=== PATIENT | female | born 1950 | race Caucasian/White ===

== ENCOUNTER → 2017-11-12 11:06 | Outpatient (CLI) | payer MEDICARE, OTHER, SELFPAY ==
--- NOTE | 2017-11-12 | DI.MG.S_ITS ---
BILATERAL DIGITAL SCREENING MAMMOGRAM 3D/2D WITH CAD: 11/12/2017 CLINICAL: Routine screening. Family history of breast cancer. Comparison is made to exams dated: 10/05/2016 mammogram, 10/04/2015 mammogram, and 12/22/2012 mammogram - [facility]. There are scattered fibroglandular elements in both breasts. Current study was also evaluated with a Computer Aided Detection (CAD) system. No significant masses, calcifications, or other findings are seen in either breast. There has been no significant interval change. IMPRESSION: NEGATIVE There is no mammographic evidence of malignancy. A 1 year screening mammogram is recommended. This exam was interpreted at Station ID: [id number]. NOTE: For mammograms, a report in lay terms will be sent to the patient. Approximately 15% of breast malignancies will not be visualized mammographically. In the management of a palpable breast mass, a negative mammogram must not discourage biopsy of a clinically suspicious lesion. Electronically Signed By: Bree valentin/neetu:11/12/2017 15:27:55 letter sent: Normal Exam ACR BI-RADS Category 1: Negative 3341F
== END ==
PROVIDERS: Family Provider Family Medicine; PCP Family Medicine; Visit Provider Family Medicine
DX: Z12.31 Encounter for screening mammogram for malignant neoplasm of breast (principal); Z80.3 Family history of malignant neoplasm of breast
CPT/HCPCS: 77063; 77067

== ENCOUNTER → 2018-01-26 15:05 | Outpatient (CLI) | payer MEDICARE, OTHER, SELFPAY | PROVIDERS: Family Provider Family Medicine; PCP Family Medicine; Visit Provider Family Medicine | DX: M81.0 Age-related osteoporosis without current pathological fracture (principal) | CPT/HCPCS: 77080 ==

== ENCOUNTER → 2018-11-15 11:33 | Outpatient (CLI) | payer MEDICARE, OTHER, SELFPAY ==
--- NOTE | 2018-11-15 | DI.MG.S_ITS ---
BILATERAL DIGITAL SCREENING MAMMOGRAM 3D/2D WITH CAD: 11/15/2018 CLINICAL: Routine screening. Family history of breast cancer. Comparison is made to exams dated: 11/12/2017 mammogram, 10/05/2016 mammogram, and 10/04/2015 mammogram - [facility]. There are scattered fibroglandular elements in both breasts. Current study was also evaluated with a Computer Aided Detection (CAD) system. No significant masses, calcifications, or other findings are seen in either breast. There has been no significant interval change. IMPRESSION: NEGATIVE There is no mammographic evidence of malignancy. A 1 year screening mammogram is recommended. This exam was interpreted at Station ID: [id number]. NOTE: For mammograms, a report in lay terms will be sent to the patient. Approximately 15% of breast malignancies will not be visualized mammographically. In the management of a palpable breast mass, a negative mammogram must not discourage biopsy of a clinically suspicious lesion. Electronically Signed By: Kolton capellan/neetu:11/15/2018 18:40:47 letter sent: Normal Exam ACR BI-RADS Category 1: Negative 3341F
== END ==
PROVIDERS: Family Provider Family Medicine; PCP Family Medicine; Visit Provider Family Medicine
DX: Z12.31 Encounter for screening mammogram for malignant neoplasm of breast (principal); Z80.3 Family history of malignant neoplasm of breast
CPT/HCPCS: 77063; 77067

== ENCOUNTER → 2020-01-30 16:03 | Outpatient (CLI) | payer MEDICARE, OTHER, SELFPAY ==
--- NOTE | 2020-01-30 16:06 | DI.MG.S_ITS ---
BILATERAL DIGITAL SCREENING MAMMOGRAM 3D/2D WITH CAD: 01/30/2020 CLINICAL: Routine screening. Family history of breast cancer. Comparison is made to exams dated: 11/15/2018 mammogram, 11/12/2017 mammogram, and 10/05/2016 mammogram - [facility]. There are scattered fibroglandular elements in both breasts. Current study was also evaluated with a Computer Aided Detection (CAD) system. No significant masses, calcifications, or other findings are seen in either breast. There has been no significant interval change. IMPRESSION: NEGATIVE There is no mammographic evidence of malignancy. A 1 year screening mammogram is recommended. This exam was interpreted at Station ID: [id number]. NOTE: For mammograms, a report in lay terms will be sent to the patient. Approximately 15% of breast malignancies will not be visualized mammographically. In the management of a palpable breast mass, a negative mammogram must not discourage biopsy of a clinically suspicious lesion. Electronically Signed By: Arsalan major/neetu:01/30/2020 17:15:01 letter sent: Normal Exam ACR BI-RADS Category 1: Negative 3341F
== END ==
PROVIDERS: Family Provider Family Medicine; PCP Family Medicine; Referring Provider Family Medicine; Visit Provider Family Medicine
DX: Z12.31 Encounter for screening mammogram for malignant neoplasm of breast (principal); Z80.3 Family history of malignant neoplasm of breast
CPT/HCPCS: 77063; 77067

== ENCOUNTER → 2021-03-03 15:48 | Outpatient (CLI) | payer MEDICARE, OTHER, SELFPAY ==
--- NOTE | 2021-03-03 | DI.MG.S_ITS ---
BILATERAL DIGITAL SCREENING MAMMOGRAM 3D/2D WITH CAD: 03/03/2021 CLINICAL: Routine screening. Family history of breast cancer. Comparison is made to exams dated: 01/30/2020 mammogram, 11/15/2018 mammogram, and 11/12/2017 mammogram - [facility]. There are scattered fibroglandular elements in both breasts. Current study was also evaluated with a Computer Aided Detection (CAD) system. No significant masses, calcifications, or other findings are seen in either breast. There has been no significant interval change. IMPRESSION: NEGATIVE There is no mammographic evidence of malignancy. A 1 year screening mammogram is recommended. This exam was interpreted at Station ID: [id number]. NOTE: For mammograms, a report in lay terms will be sent to the patient. Approximately 15% of breast malignancies will not be visualized mammographically. In the management of a palpable breast mass, a negative mammogram must not discourage biopsy of a clinically suspicious lesion. Electronically Signed By: Jerman Page M.D., jr/neetu:03/04/2021 08:28:07 letter sent: Normal Exam ACR BI-RADS Category 1: Negative 3341F
== END ==
PROVIDERS: Family Provider Family Medicine; PCP Family Medicine; Referring Provider Family Medicine; Visit Provider Family Medicine
DX: Z12.31 Encounter for screening mammogram for malignant neoplasm of breast (principal); Z80.3 Family history of malignant neoplasm of breast
CPT/HCPCS: 77063; 77067

== ENCOUNTER 2021-08-28 16:00 | Outpatient (RCR) | payer MEDICARE, OTHER, SELFPAY ==
--- NOTE | 2021-04-03 17:09 | PT.OIE ---
Current Diagnoses Unspecified urinary incontinence (04/03/21) Past Medical History (Last Updated 07/19/20 @ 17:33 by Hallie Lozoya DO) Cardiomyopathy Excessive daytime sleepiness Hyperlipidemia Hypertension Hypothyroidism Impaired fasting glucose Obesity (BMI 30-39.9) Obstructive sleep apnea of adult Primary insomnia Urinary incontinence in female Past Surgical History (Last Reviewed 05/15/20 @ 00:42 by ELVIS Rosenberg) Status post surgery (06/18/08) Status post surgery (08/07/13) Visit Care Team Role Provider Type Keerthi De Luna MD Attending Provider Physician Family Provider Primary Care Provider Referring Provider Specialty: Family Practice Address: [address] [place] [address], [facility] Email: Physical Therapy Initial Evaluation PT-OP-A Visit Information Start: 02/11/21 15:40 Freq: Status: Active Protocol: Document 04/03/21 13:44 [facility] (Rec: 04/03/21 14:07 [facility] [id number]) Out-Patient Physical Therapy Visit Information Visit Information Visit Type Initial Evaluation Visit Start Time 13:45 Visit Stop Time 14:30 Total Visit Minutes 45 Visit Number 1 Evaluation Information Evaluation Date 04/03/21 PT-OP-B Current Condition Start: 02/11/21 15:40 Freq: Status: Active Protocol: Document 04/03/21 13:44 [facility] (Rec: 04/03/21 14:07 [facility] [id number]) Current Condition History of Current Condition Onset Date symptoms have progressed in the past 8 years, increased sx in the last 6 mo Current Complaints urinary and fecal incontinence History of Current Condition symptoms began 8 years ago and have progressed. Elizabeth notes her symptoms seemed controllable for a while but in the last 6 months they have progressed. Her symptoms include urinary and fecal urgency. She did try a medication for urgency but not seem to help it. She has type II diabetes and tries to drink water but it makes her void more so water intake is limited. At times she can also have fecal incontinence maybe 2-3 times in the last year. If she has been sitting and then gets up she will have a sudden urge to void. Elizabeth wears a heavy pad every day and changes it 3 -4 times per day. She does leak at night as well as her pad is wet. She also has sleep apnea and has a cpap machine on at night Prior Treatments and Tests 2 D&C's long history of heavy periods and she had many polups removed that helped decrease the symptoms of heavy periods Treatment Goals Patient/Caregiver Goals Elizabeth'lulu goals include decreasing urinary and fecal incontinence as well as urgency Current Functional Impairments (Reported) Functional Limitations- ADL's urinary urgency and leaking limiting recreational and social activities PT-OP-C Subjective Start: 02/11/21 15:40 Freq: Status: Active Protocol: Document 04/03/21 13:44 [facility] (Rec: 04/08/21 17:08 [facility] [id number]) Patient Questionnaires Pelvic Pain and Urgency/Frequency Patient Symptom Scale Pelvic Pain Score 6 OP-PT Pain Assessment Location R SI joint Intensity 2 Scale Used Numeric (0 - 10) Description Aching PT-OP-I Pelvic Floor Start: 02/11/21 15:40 Freq: Status: Active Protocol: Document 04/03/21 13:44 [facility] (Rec: 04/03/21 17:22 [facility] [id number]) Pelvic Floor Assessment Urine Pelvic Floor Surgery No Urinary Symptoms Urge Sensation,Incomplete Emptying Leakage Size Medium Leakage Cause Cough,Exercise,Lifting,Sneeze, Urge Leaks Per Day 4 Voiding Frequency approx 6 xms per day Nocturia yes Pads Used In 24 Hours 3-4 Urine Pad Type Depends Pelvic Clock Pelvic Clock 12-3 Atrophy Pelvic Clock 3-6 Atrophy Pelvic Clock 6-9 Guarding Pelvic Clock 9-12 Atrophy Pelvic Clock Other left sided levator ani guarding and tightness SEMG (uV) Baseline 0 10 Second Contraction 1.3 Recruitment Pattern Fair Relaxation Good Holding Poor/Slow Stability of Hold Poor/Slow SEMG Stability of Rest Good Contraction Ability Voluntary Contraction Weak Voluntary Relaxation Weak Manual Muscle Testing Left 2 Manual Muscle Testing Right 3 Manual Muscle Testing Anterior 2 Manual Muscle Testing Posterior 3 Muscle Endurance (Seconds) 2 Comments Pelvic Floor Comments poor endurance with ability to hold only a quick flick, average contraction for long holds is 1.3 uv with a max contraction of 5.2 uv PT-OP-Q Treatments Start: 02/11/21 15:40 Freq: Status: Active Protocol: Document 04/03/21 13:44 [facility] (Rec: 04/03/21 17:20 [facility] [id number]) Therapeutic Exercises Supine Exercises supine pelvic floor activation Side bilateral Comments pt to work on holding up to 5 seconds with 10 second rest supine ball squeeze Side bilateral Reps/Minutes x 10res holding 5 seconds PT-OP-T Assessment and Plan Start: 02/11/21 15:40 Freq: Status: Active Protocol: Document 04/03/21 13:44 [facility] (Rec: 04/03/21 17:25 [facility] [id number]) Physical Therapy Assessment Rehab Potential Rehabilitation Potential Good Evaluation Complexity Number of Personal Factors/Comorbidities 0 Number of Body Systems Impaired 1-2 Clinical Presentation at Evaluation Stable Impairments Impairments Functional Activities,Pain, Soft Tissue Mobility,Strength, Tone Goals 4 Impairment Decreased strength of the pelvic floor with MMT of 2/5 for the anterior and left lateral martinez and 3/5 for the right lateral and posterior wall Sustain Engineer Goal (LTG) Elizabeth is able to increase her strength by one muscle grade for all aspects of her levator ani to improve support to the pelvic organs LTG Duration 8 weeks 3 Impairment Elizabeth reports urinary leakage with sit-stand activity Sustain Engineer Goal (LTG) Elizabeth is able to perform sit -stand without complaints of urinary leakage LTG Duration 8 weeks 2 Impairment Poor endurance of the pelvic floor muscles with Elizabeth only being able to hold a pelvic floor contraction for 1 -2 seconds Short Term Goal (STG) Elizabeth is able to sustain a pelvic floor contraction in supine x 10 second hold time and for 10 reps STG Duration 5 weeks Long-Term Goal (LTG) Elizabeth is able to sustain a pelvic floor contraction in sitting and or standing x 5 seconds LTG Duration 8 weeks 1 Impairment urinary leakage greater than 4 times per day, wetting through her clothes at times. Elizabeth is wearing depends and changing them 3-4 times per day Short Term Goal (STG) Elizabeth is educated on pelvic floor and core strengthening and she reports she is waking up dry in the morning STG Duration 5 weeks Sustain Engineer Goal (LTG) With pelvic floor and core strengthening Elizabeth is able to reduce her leaking to 0-1 times per day LTG Duration 8 weeks + Assessment Summary Assessment Elizabeth is a 71 year old female referred to Physical Therapy for pelvic floor strengthening. She has complaints of primarily urinary incontinence but has also suffered a few episodes of fecal incontinence as well. She has had symtpoms for approx 8 years but she felt they were manageable. In the past 6 months though her symptoms have progressed and she is leaking approximately 4 times per day and wearing depends type protection. She reports driving longer distances has become difficult for her and she loses control when transferring from a sitting position to a standing position. With evaluation today Elizabeth is weak in her levator ani testing 2/5 MMT for the left and anterior wall, 3/5 MMT for the posterior and right wall. She lacks endurnance and is only able to sustain a pelvic floor contraction 1-2 seconds. I initiated EMG biofeedback with her today for neuro re- education of the pelvic floor muscles and she tolerated this well. She is a good candidate for PT. Physical Therapy Plan Frequency and Duration Frequency of Treatment 1x/Week Duration of Treatment 8 Plan of Care Start Date 04/03/21 Plan of Care End Date 05/29/21 Therapeutic Interventions Therapeutic Interventions Home Exercise Program, Neuromuscular Re-education, Self-Care/Home Management,Soft Tissue Mobilization, Therapeutic Exercises Modalities Biofeedback Next Visit Focus/Plan Next Note Type Treatment Note Next Visit Plan continue with the EMG biofeedback for neuro awareness of the pelvic floor, begin abduction exercise to help facilitate pelvic floor contraction
--- NOTE | 2021-04-03 17:09 | PT.OPPOC ---
Physical, Occupational & Speech Therapy At [facility] Current Diagnoses Unspecified urinary incontinence (04/03/21) Visit Care Team Role Provider Type Keerthi De Luna MD Attending Provider Physician Family Provider Primary Care Provider Referring Provider Specialty: Family Practice Address: [address] [place] [address] [place], [address] Email: [email or web address] Plan Of Care PT-OP-T Assessment and Plan Start: 02/11/21 15:40 Freq: Status: Active Protocol: Document 04/03/21 13:44 [facility] (Rec: 04/03/21 17:25 [facility] [id number]) Physical Therapy Assessment Rehab Potential Rehabilitation Potential Good Evaluation Complexity Number of Personal Factors/Comorbidities 0 Number of Body Systems Impaired 1-2 Clinical Presentation at Evaluation Stable Impairments Impairments Functional Activities,Pain, Soft Tissue Mobility,Strength, Tone Goals 4 Impairment Decreased strength of the pelvic floor with MMT of 2/5 for the anterior and left lateral martinez and 3/5 for the right lateral and posterior wall Intermediate Goal (LTG) Elizabeth is able to increase her strength by one muscle grade for all aspects of her levator ani to improve support to the pelvic organs LTG Duration 8 weeks 3 Impairment Elizabeth reports urinary leakage with sit-stand activity Intermediate Goal (LTG) Elizabeth is able to perform sit -stand without complaints of urinary leakage LTG Duration 8 weeks 2 Impairment Poor endurance of the pelvic floor muscles with Elizabeth only being able to hold a pelvic floor contraction for 1 -2 seconds Short Term Goal (STG) Elizabeth is able to sustain a pelvic floor contraction in supine x 10 second hold time and for 10 reps STG Duration 5 weeks Intermediate Goal (LTG) Elizabeth is able to sustain a pelvic floor contraction in sitting and or standing x 5 seconds LTG Duration 8 weeks 1 Impairment urinary leakage greater than 4 times per day, wetting through her clothes at times. Elizabeth is wearing depends and changing them 3-4 times per day Short Term Goal (STG) Elizabeth is educated on pelvic floor and core strengthening and she reports she is waking up dry in the morning STG Duration 5 weeks Foxer Goal (LTG) With pelvic floor and core strengthening Elizabeth is able to reduce her leaking to 0-1 times per day LTG Duration 8 weeks + Assessment Summary Assessment Elizabeth is a 71 year old female referred to Physical Therapy for pelvic floor strengthening. She has complaints of primarily urinary incontinence but has also suffered a few episodes of fecal incontinence as well. She has had symptoms for approx 8 years but she felt they were manageable. In the past 6 months though her symptoms have progressed and she is leaking approximately 4 times per day and wearing depends type protection. She reports driving longer distances has become difficult for her and she loses control when transferring from a sitting position to a standing position. With evaluation today Elizabeth is weak in her levator ani testing 2/5 MMT for the left and anterior wall, 3/5 MMT for the posterior and right wall. She lacks endurance and is only able to sustain a pelvic floor contraction 1-2 seconds. I initiated EMG biofeedback with her today for neuro re- education of the pelvic floor muscles and she tolerated this well. She is a good candidate for PT. Physical Therapy Plan Frequency and Duration Frequency of Treatment 1x/Week Duration of Treatment 8 Plan of Care Start Date 04/03/21 Plan of Care End Date 05/29/21 Therapeutic Interventions Therapeutic Interventions Home Exercise Program, Neuromuscular Re-education, Self-Care/Home Management,Soft Tissue Mobilization, Therapeutic Exercises Modalities Biofeedback Next Visit Focus/Plan Next Note Type Treatment Note Next Visit Plan continue with the EMG biofeedback for neuro awareness of the pelvic floor, begin abduction exercise to help facilitate pelvic floor contraction Plan of Care Dates Plan of Care Start Date 04/03/21 Plan of Care End Date 05/29/21 Electronically Signed by: Jessica Finnegan, PT 04/08/21 1739 Please Sign and Return: I have reviewed this Plan of Care and certify that the skilled therapy services above are required to meet the patient?s needs. Physician Signature Date Printed Name and Credentials Clinical Instructor Signature Printed Name and Credentials
--- NOTE | 2021-05-22 17:53 | PT.OTN ---
Current Diagnoses Unspecified urinary incontinence (05/22/21) Physical Therapy Treatment Note PT-OP-A Visit Information Start: 02/11/21 15:40 Freq: Status: Active Protocol: Document 05/22/21 14:37 [facility] (Rec: 05/22/21 14:44 [facility] [id number]) Out-Patient Physical Therapy Visit Information Visit Information Visit Type Treatment Note Visit Start Time 14:35 Visit Stop Time 15:15 Total Visit Minutes 40 Visit Number 2 PT-OP-B Current Condition Start: 02/11/21 15:40 Freq: Status: Active Protocol: Document 04/03/21 13:44 [facility] (Rec: 04/03/21 14:07 [facility] [id number]) Current Condition History of Current Condition Onset Date symptoms have progressed in the past 8 years, increased sx in the last 6 mo Current Complaints urinary and fecal incontinence History of Current Condition symptoms began 8 years ago and have progressed. Elizabeth notes her symptoms seemed controllable for a while but in the last 6 months they have progressed. Her symptoms include urinary and fecal urgency. She did try a medication for urgency but not seem to help it. She has type II diabetes and tries to drink water but it makes her void more so water intake is limited. At times she can also have fecal incontinence maybe 2-3 times in the last year. If she has been sitting and then gets up she will have a sudden urge to void. Elizabeth wears a heavy pad every day and changes it 3 -4 times per day. She does leak at night as well as her pad is wet. She also has sleep apnea and has a cpap machine on at night Prior Treatments and Tests 2 D&C's long history of heavy periods and she had many polups removed that helped decrease the symptoms of heavy periods Treatment Goals Patient/Caregiver Goals Elizabeth's goals include decreasing urinary and fecal incontinence as well as urgency Current Functional Impairments (Reported) Functional Limitations- ADL's urinary urgency and leaking limiting recreational and social activities PT-OP-C Subjective Start: 02/11/21 15:40 Freq: Status: Active Protocol: Document 05/22/21 14:37 [facility] (Rec: 05/22/21 14:44 [facility] [id number]) OP-PT Subjective Patient Comments Patient Comments started the bladder diary in April, she notes she uses depends 02/11 she changes her pad 3-4xms per day and over night she wears one pad. PT feels like the kegel exercises are helping a little bit. Patient Reported Progress Improving PT-OP-I Pelvic Floor Start: 02/11/21 15:40 Freq: Status: Active Protocol: Document 04/03/21 13:44 [facility] (Rec: 04/03/21 17:22 [facility] [id number]) Pelvic Floor Assessment Urine Pelvic Floor Surgery No Urinary Symptoms Urge Sensation,Incomplete Emptying Leakage Size Medium Leakage Cause Cough,Exercise,Lifting,Sneeze, Urge Leaks Per Day 4 Voiding Frequency approx 6 xms per day Nocturia yes Pads Used In 24 Hours 3-4 Urine Pad Type Depends Pelvic Clock Pelvic Clock 12-3 Atrophy Pelvic Clock 3-6 Atrophy Pelvic Clock 6-9 Guarding Pelvic Clock 9-12 Atrophy Pelvic Clock Other left sided levator ani guarding and tightness SEMG (uV) Baseline 0 10 Second Contraction 1.3 Recruitment Pattern Fair Relaxation Good Holding Poor/Slow Stability of Hold Poor/Slow SEMG Stability of Rest Good Contraction Ability Voluntary Contraction Weak Voluntary Relaxation Weak Manual Muscle Testing Left 2 Manual Muscle Testing Right 3 Manual Muscle Testing Anterior 2 Manual Muscle Testing Posterior 3 Muscle Endurance (Seconds) 2 Comments Pelvic Floor Comments poor endurance with ability to hold only a quick flick, average contraction for long holds is 1.3 uv with a max contraction of 5.2 uv PT-OP-Q Treatments Start: 02/11/21 15:40 Freq: Status: Active Protocol: Document 05/22/21 14:30 [facility] (Rec: 05/22/21 17:53 [facility] [id number]) Therapeutic Exercises Supine Exercises quick pelvic floor contractions Reps/Minutes 10 reps x 2 second hold each supine pelvic floor activation Side bilateral Comments pt to work on holding up to 5 seconds with 10 second rest supine ball squeeze Side bilateral Reps/Minutes x 10res holding 5 seconds Comments with pelvic floor activation Sidelying Exercises clam shells Reps/Minutes 2 x 10 reps Sitting Exercises sit to stand with pelvic floor engagement Reps/Minutes x 10 with pelvic floor recruitment PT-OP-T Assessment and Plan Start: 02/11/21 15:40 Freq: Status: Active Protocol: Document 05/22/21 14:30 [facility] (Rec: 05/22/21 17:53 [facility] [id number]) Physical Therapy Assessment Assessment Summary Assessment Elizabeth hasn't been seen since april 03. She notes she lost her exersice sheet and then was busy with the holidays. Today she returns and does feel that the exercises have been helping her some. She didn't bring her electrode today to her visit so we didn't do biofeedback but worked on pelvic floor as well as hip strengthening. Time was spent today on core facilitation prior to getting up out of bed as Elizabeth tends to strain with changes of position Physical Therapy Plan Frequency and Duration Frequency of Treatment 1x/Week Duration of Treatment 8 Plan of Care Start Date 04/03/21 Plan of Care End Date 05/29/21 Therapeutic Interventions Therapeutic Interventions Home Exercise Program, Neuromuscular Re-education, Self-Care/Home Management,Soft Tissue Mobilization, Therapeutic Exercises Next Visit Focus/Plan Next Note Type Treatment Note Next Visit Plan continue with EMG biofeedback next visit, review urge deference technique and bladder retraining, review clam shells and sit-stand with pelvic floor engagement
--- NOTE | 2021-06-19 17:10 | PT.OTN ---
Current Diagnoses Unspecified urinary incontinence (06/19/21) Physical Therapy Treatment Note PT-OP-A Visit Information Start: 02/11/21 15:40 Freq: Status: Active Protocol: Document 06/19/21 15:16 [facility] (Rec: 06/19/21 15:58 [facility] [id number]) Out-Patient Physical Therapy Visit Information Visit Information Visit Type Progress Note Visit Start Time 15:15 Visit Stop Time 16:00 Total Visit Minutes 45 Visit Number 3 PT-OP-B Current Condition Start: 02/11/21 15:40 Freq: Status: Active Protocol: Document 04/03/21 13:44 [facility] (Rec: 04/03/21 14:07 [facility] [id number]) Current Condition History of Current Condition Onset Date symptoms have progressed in the past 8 years, increased sx in the last 6 mo Current Complaints urinary and fecal incontinence History of Current Condition symptoms began 8 years ago and have progressed. Elizabeth notes her symptoms seemed controllable for a while but in the last 6 months they have progressed. Her symptoms include urinary and fecal urgency. She did try a medication for urgency but not seem to help it. She has type II diabetes and tries to drink water but it makes her void more so water intake is limited. At times she can also have fecal incontinence maybe 2-3 times in the last year. If she has been sitting and then gets up she will have a sudden urge to void. Elizabeth wears a heavy pad every day and changes it 3 -4 times per day. She does leak at night as well as her pad is wet. She also has sleep apnea and has a cpap machine on at night Prior Treatments and Tests 2 D&C's long history of heavy periods and she had many polups removed that helped decrease the symptoms of heavy periods Treatment Goals Patient/Caregiver Goals Elizabeth's goals include decreasing urinary and fecal incontinence as well as urgency Current Functional Impairments (Reported) Functional Limitations- ADL's urinary urgency and leaking limiting recreational and social activities PT-OP-C Subjective Start: 02/11/21 15:40 Freq: Status: Active Protocol: Document 06/19/21 15:16 [facility] (Rec: 06/19/21 15:58 [facility] [id number]) OP-PT Subjective Patient Comments Patient Comments pt reports she has been loosing sleep lately, she is trying to do her exercises but knows she isn't doing them as regularly as she needs to. Elizabeth reports she may be a little better and isn't wetting through her clothes. The am is the most challenging for her to get out of bed and make it to the bathroom Patient Reported Progress Improving PT-OP-I Pelvic Floor Start: 02/11/21 15:40 Freq: Status: Active Protocol: Document 04/03/21 13:44 [facility] (Rec: 04/03/21 17:22 [facility] [id number]) Pelvic Floor Assessment Urine Pelvic Floor Surgery No Urinary Symptoms Urge Sensation,Incomplete Emptying Leakage Size Medium Leakage Cause Cough,Exercise,Lifting,Sneeze, Urge Leaks Per Day 4 Voiding Frequency approx 6 xms per day Nocturia yes Pads Used In 24 Hours 3-4 Urine Pad Type Depends Pelvic Clock Pelvic Clock 12-3 Atrophy Pelvic Clock 3-6 Atrophy Pelvic Clock 6-9 Guarding Pelvic Clock 9-12 Atrophy Pelvic Clock Other left sided levator ani guarding and tightness SEMG (uV) Baseline 0 10 Second Contraction 1.3 Recruitment Pattern Fair Relaxation Good Holding Poor/Slow Stability of Hold Poor/Slow SEMG Stability of Rest Good Contraction Ability Voluntary Contraction Weak Voluntary Relaxation Weak Manual Muscle Testing Left 2 Manual Muscle Testing Right 3 Manual Muscle Testing Anterior 2 Manual Muscle Testing Posterior 3 Muscle Endurance (Seconds) 2 Comments Pelvic Floor Comments poor endurance with ability to hold only a quick flick, average contraction for long holds is 1.3 uv with a max contraction of 5.2 uv PT-OP-Q Treatments Start: 02/11/21 15:40 Freq: Status: Active Protocol: Document 06/19/21 15:16 [facility] (Rec: 06/19/21 15:58 [facility] [id number]) Therapeutic Exercises Supine Exercises bridges Supine Exercise Name with ball Reps/Minutes x 10 reps quick pelvic floor contractions Reps/Minutes 10 reps x 2 second hold each supine pelvic floor activation Side bilateral Comments pt to work on holding 10 seconds with 10 second rest supine ball squeeze Side bilateral Reps/Minutes x 10res holding 5 seconds Comments average contraction2.5 uv with max 7.0 Sidelying Exercises clam shells Reps/Minutes 2 x 10 reps Sitting Exercises sit to stand with pelvic floor engagement Reps/Minutes x 10 with pelvic floor recruitment PT-OP-T Assessment and Plan Start: 02/11/21 15:40 Freq: Status: Active Protocol: Document 06/19/21 15:16 [facility] (Rec: 06/19/21 15:58 [facility] [id number]) Physical Therapy Assessment Goals 4 Impairment Decreased strength of the pelvic floor with MMT of 2/5 for the anterior and left lateral martinez and 3/5 for the right lateral and posterior wall Parlor Chaperone Goal (LTG) Elizabeth is able to increase her strength by one muscle grade for all aspects of her levator ani to improve support to the pelvic organs GOOD PROGRESS LTG Duration 8 weeks 3 Impairment Elizabeth reports urinary leakage with sit-stand activity Parlor Chaperone Goal (LTG) Elizabeth is able to perform sit -stand without complaints of urinary leakage excellent progress with most of the time Elizabeth is not noticing leaking with this activity and she is able to engage her pelvic floor prior to standing LTG Duration 8 weeks 2 Impairment Poor endurance of the pelvic floor muscles with Elizabeth only being able to hold a pelvic floor contraction for 1 -2 seconds Short Term Goal (STG) Elizabeth is able to sustain a pelvic floor contraction in supine x 10 second hold time and for 10 reps Endurance is slowly improving and Elizabeth is able to hold her contraction 6-8 seconds now in supine STG Duration 5 weeks Parlor Chaperone Goal (LTG) Elizabeth is able to sustain a pelvic floor contraction in sitting and or standing x 5 seconds Some progress LTG Duration 8 weeks 1 Impairment urinary leakage greater than 4 times per day, wetting through her clothes at times. Elizabeth is wearing depends and changing them 3-4 times per day Short Term Goal (STG) Elizabeth is educated on pelvic floor and core strengthening and she reports she is waking up dry in the morning good progress and Elizabeth is no longer wetting through her clothes. Overall improvement with not wetting through her clothes, AM is the most challanging time for her to get out of bed and make it to the bathroom. STG Duration 5 weeks Parlor Chaperone Goal (LTG) With pelvic floor and core strengthening Elizabeth is able to reduce her leaking to 0-1 times per day Good progress LTG Duration 8 weeks + Progress Towards Goals Progress Towards Goals Progressing Toward Goals Assessment Summary Assessment Elizabeth has only been seen x 3 visits in PT as she needed to cancel due to family reasons. She is making progress with the visits she has had and is able to isolate her pelvic floor better now. She notes she isn't having the leaking through her clothes throughout the day now but that mornings are still difficult for her to make it to the bathroom once she wakes up. Elizabeth is showing improvements with her pelvic floor endurance but I feel she could use more visits to continue working on strength. Physical Therapy Plan Frequency and Duration Frequency of Treatment 1x/Week Duration of Treatment 8 Plan of Care Start Date 06/19/21 Plan of Care End Date 09/10/21 Therapeutic Interventions Therapeutic Interventions Home Exercise Program, Neuromuscular Re-education, Self-Care/Home Management,Soft Tissue Mobilization, Therapeutic Exercises Next Visit Focus/Plan Next Note Type Treatment Note Next Visit Plan continue with EMG biofeedback next visit, review urge deference technique and bladder retraining, review clam shells and sit-stand with pelvic floor engagement
--- NOTE | 2021-06-19 17:11 | PT.OPPOC ---
Physical, Occupational & Speech Therapy At [facility] Current Diagnoses Unspecified urinary incontinence (06/19/21) Visit Care Team Role Provider Type Keerthi De Luna MD Attending Provider Physician Family Provider Primary Care Provider Referring Provider Specialty: Family Practice Address: [address] [place] [address] [place], [address] Email: [email or web address] Plan Of Care PT-OP-T Assessment and Plan Start: 02/11/21 15:40 Freq: Status: Active Protocol: Document 06/19/21 15:16 [facility] (Rec: 06/19/21 15:58 [facility] [id number]) Physical Therapy Assessment Goals 4 Impairment Decreased strength of the pelvic floor with MMT of 2/5 for the anterior and left lateral martinez and 3/5 for the right lateral and posterior wall Specialty Transformer Assembler Goal (LTG) Elizabeth is able to increase her strength by one muscle grade for all aspects of her levator ani to improve support to the pelvic organs GOOD PROGRESS LTG Duration 8 weeks 3 Impairment Elizabeth reports urinary leakage with sit-stand activity Specialty Transformer Assembler Goal (LTG) Elizabeth is able to perform sit -stand without complaints of urinary leakage excellent progress with most of the time Elizabeth is not noticing leaking with this activity and she is able to engage her pelvic floor prior to standing LTG Duration 8 weeks 2 Impairment Poor endurance of the pelvic floor muscles with Elizabeth only being able to hold a pelvic floor contraction for 1 -2 seconds Short Term Goal (STG) Elizabeth is able to sustain a pelvic floor contraction in supine x 10 second hold time and for 10 reps Endurance is slowly improving and Elizabeth is able to hold her contraction 6-8 seconds now in supine STG Duration 5 weeks Specialty Transformer Assembler Goal (LTG) Elizabeth is able to sustain a pelvic floor contraction in sitting and or standing x 5 seconds Some progress LTG Duration 8 weeks 1 Impairment urinary leakage greater than 4 times per day, wetting through her clothes at times. Elizabeth is wearing depends and changing them 3-4 times per day Short Term Goal (STG) Elizabeth is educated on pelvic floor and core strengthening and she reports she is waking up dry in the morning good progress and Elizabeth is no longer wetting through her clothes. Overall improvement with not wetting through her clothes, AM is the most challenging time for her to get out of bed and make it to the bathroom. STG Duration 5 weeks Fpc Goal (LTG) With pelvic floor and core strengthening Elizabeth is able to reduce her leaking to 0-1 times per day Good progress LTG Duration 8 weeks + Progress Towards Goals Progress Towards Goals Progressing Toward Goals Assessment Summary Assessment Elizabeth has only been seen x 3 visits in PT as she needed to cancel due to family reasons. She is making progress with the visits she has had and is able to isolate her pelvic floor better now. She notes she isn't having the leaking through her clothes throughout the day now but that mornings are still difficult for her to make it to the bathroom once she wakes up. Elizabeth is showing improvements with her pelvic floor endurance but I feel she could use more visits to continue working on strength. Physical Therapy Plan Frequency and Duration Frequency of Treatment 1x/Week Duration of Treatment 8 Plan of Care Start Date 06/19/21 Plan of Care End Date 09/10/21 Therapeutic Interventions Therapeutic Interventions Home Exercise Program, Neuromuscular Re-education, Self-Care/Home Management,Soft Tissue Mobilization, Therapeutic Exercises Next Visit Focus/Plan Next Note Type Treatment Note Next Visit Plan continue with EMG biofeedback next visit, review urge deference technique and bladder retraining, review clam shells and sit-stand with pelvic floor engagement Plan of Care Dates Plan of Care Start Date 06/19/21 Plan of Care End Date 09/10/21 Electronically Signed by: Jessica Finnegan, PT 06/19/21 0984 Please Sign and Return: I have reviewed this Plan of Care and certify that the skilled therapy services above are required to meet the patient?s needs. Physician Signature Date Printed Name and Credentials Clinical Instructor Signature Printed Name and Credentials
--- NOTE | 2021-06-26 15:58 | PT.OTN ---
Current Diagnoses Unspecified urinary incontinence (06/26/21) Physical Therapy Treatment Note PT-OP-A Visit Information Start: 02/11/21 15:40 Freq: Status: Active Protocol: Document 06/26/21 15:15 [facility] (Rec: 06/26/21 15:57 [facility] [id number]) Out-Patient Physical Therapy Visit Information Visit Information Visit Type Treatment Note Visit Start Time 15:30 Visit Stop Time 16:00 Total Visit Minutes 30 Visit Number 4 PT-OP-B Current Condition Start: 02/11/21 15:40 Freq: Status: Active Protocol: Document 04/03/21 13:44 [facility] (Rec: 04/03/21 14:07 [facility] [id number]) Current Condition History of Current Condition Onset Date symptoms have progressed in the past 8 years, increased sx in the last 6 mo Current Complaints urinary and fecal incontinence History of Current Condition symptoms began 8 years ago and have progressed. Elizabeth notes her symptoms seemed controllable for a while but in the last 6 months they have progressed. Her symptoms include urinary and fecal urgency. She did try a medication for urgency but not seem to help it. She has type II diabetes and tries to drink water but it makes her void more so water intake is limited. At times she can also have fecal incontinence maybe 2-3 times in the last year. If she has been sitting and then gets up she will have a sudden urge to void. Elizabeth wears a heavy pad every day and changes it 3 -4 times per day. She does leak at night as well as her pad is wet. She also has sleep apnea and has a cpap machine on at night Prior Treatments and Tests 2 D&C's long history of heavy periods and she had many polups removed that helped decrease the symptoms of heavy periods Treatment Goals Patient/Caregiver Goals Elizabeth's goals include decreasing urinary and fecal incontinence as well as urgency Current Functional Impairments (Reported) Functional Limitations- ADL's urinary urgency and leaking limiting recreational and social activities PT-OP-C Subjective Start: 02/11/21 15:40 Freq: Status: Active Protocol: Document 06/26/21 15:15 [facility] (Rec: 06/26/21 15:57 [facility] [id number]) OP-PT Subjective Patient Comments Patient Comments pt artie has been trying to do her exercises, she has been trying to tighten before getting out of her chair and she feels this is helping. PT-OP-I Pelvic Floor Start: 02/11/21 15:40 Freq: Status: Active Protocol: Document 04/03/21 13:44 [facility] (Rec: 04/03/21 17:22 [facility] [id number]) Pelvic Floor Assessment Urine Pelvic Floor Surgery No Urinary Symptoms Urge Sensation,Incomplete Emptying Leakage Size Medium Leakage Cause Cough,Exercise,Lifting,Sneeze, Urge Leaks Per Day 4 Voiding Frequency approx 6 xms per day Nocturia yes Pads Used In 24 Hours 3-4 Urine Pad Type Depends Pelvic Clock Pelvic Clock 12-3 Atrophy Pelvic Clock 3-6 Atrophy Pelvic Clock 6-9 Guarding Pelvic Clock 9-12 Atrophy Pelvic Clock Other left sided levator ani guarding and tightness SEMG (uV) Baseline 0 10 Second Contraction 1.3 Recruitment Pattern Fair Relaxation Good Holding Poor/Slow Stability of Hold Poor/Slow SEMG Stability of Rest Good Contraction Ability Voluntary Contraction Weak Voluntary Relaxation Weak Manual Muscle Testing Left 2 Manual Muscle Testing Right 3 Manual Muscle Testing Anterior 2 Manual Muscle Testing Posterior 3 Muscle Endurance (Seconds) 2 Comments Pelvic Floor Comments poor endurance with ability to hold only a quick flick, average contraction for long holds is 1.3 uv with a max contraction of 5.2 uv PT-OP-Q Treatments Start: 02/11/21 15:40 Freq: Status: Active Protocol: Document 06/26/21 15:15 [facility] (Rec: 06/26/21 15:57 [facility] [id number]) Therapeutic Exercises Supine Exercises templates for coordination and eccentric control Equipment Used EMG biofeedback pelvic floor templates Reps/Minutes x 5 bridges Supine Exercise Name with ball Reps/Minutes x 10 reps quick pelvic floor contractions Reps/Minutes 10 reps x 2 second hold each Comments 8.7 uv supine pelvic floor activation Side bilateral Comments AVERAGE 7.1 and max 13 uv supine ball squeeze Side bilateral Reps/Minutes x 10res holding 5 seconds Comments average contraction2.5 uv with max 7.0 Sidelying Exercises clam shells Reps/Minutes 2 x 10 reps Sitting Exercises sit to stand with pelvic floor engagement Reps/Minutes x 10 with pelvic floor recruitment PT-OP-T Assessment and Plan Start: 02/11/21 15:40 Freq: Status: Active Protocol: Document 06/26/21 15:15 [facility] (Rec: 06/26/21 15:57 [facility] [id number]) Physical Therapy Assessment Assessment Summary Assessment Pt 15 min late today for appt. pt is showing a good increase with her pelvic floor muscle activation and strength. She is starting to notice a decrease in her symptoms. Physical Therapy Plan Frequency and Duration Frequency of Treatment 1x/Week Duration of Treatment 8 Plan of Care Start Date 06/19/21 Plan of Care End Date 09/10/21
--- NOTE | 2021-07-03 16:26 | PT.OTN ---
Current Diagnoses Unspecified urinary incontinence (07/03/21) Physical Therapy Treatment Note PT-OP-A Visit Information Start: 02/11/21 15:40 Freq: Status: Active Protocol: Document 07/03/21 15:26 [facility] (Rec: 07/03/21 16:04 [facility] [id number]) Out-Patient Physical Therapy Visit Information Visit Information Visit Type Treatment Note Visit Start Time 15:30 Visit Stop Time 16:10 Total Visit Minutes 40 Visit Number 5 PT-OP-B Current Condition Start: 02/11/21 15:40 Freq: Status: Active Protocol: Document 04/03/21 13:44 [facility] (Rec: 04/03/21 14:07 [facility] [id number]) Current Condition History of Current Condition Onset Date symptoms have progressed in the past 8 years, increased sx in the last 6 mo Current Complaints urinary and fecal incontinence History of Current Condition symptoms began 8 years ago and have progressed. Elizabeth notes her symptoms seemed controllable for a while but in the last 6 months they have progressed. Her symptoms include urinary and fecal urgency. She did try a medication for urgency but not seem to help it. She has type II diabetes and tries to drink water but it makes her void more so water intake is limited. At times she can also have fecal incontinence maybe 2-3 times in the last year. If she has been sitting and then gets up she will have a sudden urge to void. Elizabeth wears a heavy pad every day and changes it 3 -4 times per day. She does leak at night as well as her pad is wet. She also has sleep apnea and has a cpap machine on at night Prior Treatments and Tests 2 D&C's long history of heavy periods and she had many polups removed that helped decrease the symptoms of heavy periods Treatment Goals Patient/Caregiver Goals Elizabeth's goals include decreasing urinary and fecal incontinence as well as urgency Current Functional Impairments (Reported) Functional Limitations- ADL's urinary urgency and leaking limiting recreational and social activities PT-OP-C Subjective Start: 02/11/21 15:40 Freq: Status: Active Protocol: Document 07/03/21 15:26 [facility] (Rec: 07/03/21 16:04 [facility] [id number]) OP-PT Subjective Patient Comments Patient Comments pt notes when she wakes up in the am she is full in her bladder, some times she waits too long to get up. She is doing better at getting out of the car to get into the bathroom and not wetting all the way through her clothes PT-OP-I Pelvic Floor Start: 02/11/21 15:40 Freq: Status: Active Protocol: Document 04/03/21 13:44 [facility] (Rec: 04/03/21 17:22 [facility] [id number]) Pelvic Floor Assessment Urine Pelvic Floor Surgery No Urinary Symptoms Urge Sensation,Incomplete Emptying Leakage Size Medium Leakage Cause Cough,Exercise,Lifting,Sneeze, Urge Leaks Per Day 4 Voiding Frequency approx 6 xms per day Nocturia yes Pads Used In 24 Hours 3-4 Urine Pad Type Depends Pelvic Clock Pelvic Clock 12-3 Atrophy Pelvic Clock 3-6 Atrophy Pelvic Clock 6-9 Guarding Pelvic Clock 9-12 Atrophy Pelvic Clock Other left sided levator ani guarding and tightness SEMG (uV) Baseline 0 10 Second Contraction 1.3 Recruitment Pattern Fair Relaxation Good Holding Poor/Slow Stability of Hold Poor/Slow SEMG Stability of Rest Good Contraction Ability Voluntary Contraction Weak Voluntary Relaxation Weak Manual Muscle Testing Left 2 Manual Muscle Testing Right 3 Manual Muscle Testing Anterior 2 Manual Muscle Testing Posterior 3 Muscle Endurance (Seconds) 2 Comments Pelvic Floor Comments poor endurance with ability to hold only a quick flick, average contraction for long holds is 1.3 uv with a max contraction of 5.2 uv PT-OP-Q Treatments Start: 02/11/21 15:40 Freq: Status: Active Protocol: Document 07/03/21 15:26 [facility] (Rec: 07/03/21 16:04 [facility] [id number]) Therapeutic Exercises Supine Exercises hip abduction with theraband Equipment Used x 10 reps Reps/Minutes level 1 theraband 3 figure 4 stretch Reps/Minutes hold 30 seconds hip ER in supine Reps/Minutes 2 x 10 reps with yellow theraband single knee to chest Reps/Minutes hold 30 seconds each bridges Supine Exercise Name with ball Reps/Minutes x 10 reps quick pelvic floor contractions Reps/Minutes 10 reps x 2 second hold each Comments 8.7 uv supine pelvic floor activation Reps/Minutes 10 second hold x 10 reps supine ball squeeze Side bilateral Reps/Minutes x 10res holding 5 seconds Comments without EMG biofeedback Sidelying Exercises clam shells Reps/Minutes 2 x 10 reps Sitting Exercises sit to stand with pelvic floor engagement Reps/Minutes x 10 with pelvic floor recruitment PT-OP-T Assessment and Plan Start: 02/11/21 15:40 Freq: Status: Active Protocol: Document 07/03/21 15:26 [facility] (Rec: 07/03/21 16:04 [facility] [id number]) Physical Therapy Assessment Goals 4 Impairment Decreased strength of the pelvic floor with MMT of 2/5 for the anterior and left lateral martinez and 3/5 for the right lateral and posterior wall Rope Cutter Goal (LTG) Elizabeth is able to increase her strength by one muscle grade for all aspects of her levator ani to improve support to the pelvic organs GOOD PROGRESS LTG Duration 8 weeks 3 Impairment Elizabeth reports urinary leakage with sit-stand activity Rope Cutter Goal (LTG) Elizabeth is able to perform sit -stand without complaints of urinary leakage excellent progress with most of the time Elizabeth is not noticing leaking with this activity and she is able to engage her pelvic floor prior to standing LTG Duration 8 weeks 2 Impairment Poor endurance of the pelvic floor muscles with Elizabeth only being able to hold a pelvic floor contraction for 1 -2 seconds Short Term Goal (STG) Elizabeth is able to sustain a pelvic floor contraction in supine x 10 second hold time and for 10 reps Endurance is slowly improving and Elizabeth is able to hold her contraction 6-8 seconds now in supine STG Duration 5 weeks Alf Goal (LTG) Elizabeth is able to sustain a pelvic floor contraction in sitting and or standing x 5 seconds Some progress LTG Duration 8 weeks 1 Impairment urinary leakage greater than 4 times per day, wetting through her clothes at times. Elizabeth is wearing depends and changing them 3-4 times per day Short Term Goal (STG) Elizabeth is educated on pelvic floor and core strengthening and she reports she is waking up dry in the morning good progress and Elizabeth is no longer wetting through her clothes. Overall improvement with not wetting through her clothes, AM is the most challenging time for her to get out of bed and make it to the bathroom. STG Duration 5 weeks Alf Goal (LTG) With pelvic floor and core strengthening Elizabeth is able to reduce her leaking to 0-1 times per day Good progress LTG Duration 8 weeks + Assessment Summary Assessment Elizabeth is doing better overall with pelvic floor strengthening. She is reporting decreased urinary leakage and feels like she has more control Physical Therapy Plan Frequency and Duration Frequency of Treatment 1x/Week Duration of Treatment 8 Plan of Care Start Date 06/19/21 Plan of Care End Date 09/10/21 Therapeutic Interventions Therapeutic Interventions Home Exercise Program, Neuromuscular Re-education, Self-Care/Home Management,Soft Tissue Mobilization, Therapeutic Exercises Next Visit Focus/Plan Next Note Type Treatment Note Next Visit Plan continue with EMG biofeedback next visit, review urge deference technique and bladder retraining, review clam shells and sit-stand with pelvic floor engagement
--- NOTE | 2021-07-10 17:19 | PT.OTN ---
Current Diagnoses Unspecified urinary incontinence (07/10/21) Physical Therapy Treatment Note PT-OP-A Visit Information Start: 02/11/21 15:40 Freq: Status: Active Protocol: Document 07/10/21 15:25 [facility] (Rec: 07/10/21 16:06 [facility] [id number]) Out-Patient Physical Therapy Visit Information Visit Information Visit Type Treatment Note Visit Start Time 15:25 Visit Stop Time 16:00 Total Visit Minutes 35 Visit Number 6 PT-OP-B Current Condition Start: 02/11/21 15:40 Freq: Status: Active Protocol: Document 04/03/21 13:44 [facility] (Rec: 04/03/21 14:07 [facility] [id number]) Current Condition History of Current Condition Onset Date symptoms have progressed in the past 8 years, increased sx in the last 6 mo Current Complaints urinary and fecal incontinence History of Current Condition symptoms began 8 years ago and have progressed. Elizabeth notes her symptoms seemed controllable for a while but in the last 6 months they have progressed. Her symptoms include urinary and fecal urgency. She did try a medication for urgency but not seem to help it. She has type II diabetes and tries to drink water but it makes her void more so water intake is limited. At times she can also have fecal incontinence maybe 2-3 times in the last year. If she has been sitting and then gets up she will have a sudden urge to void. Elizabeth wears a heavy pad every day and changes it 3 -4 times per day. She does leak at night as well as her pad is wet. She also has sleep apnea and has a cpap machine on at night Prior Treatments and Tests 2 D&C's long history of heavy periods and she had many polups removed that helped decrease the symptoms of heavy periods Treatment Goals Patient/Caregiver Goals Elizabeth's goals include decreasing urinary and fecal incontinence as well as urgency Current Functional Impairments (Reported) Functional Limitations- ADL's urinary urgency and leaking limiting recreational and social activities PT-OP-C Subjective Start: 02/11/21 15:40 Freq: Status: Active Protocol: Document 07/10/21 15:25 [facility] (Rec: 07/10/21 16:06 [facility] [id number]) OP-PT Subjective Patient Comments Patient Comments she has had a couple of instances where she turned the water on and she noticed a leak but noting improvements otherwise Patient Reported Progress Improving PT-OP-I Pelvic Floor Start: 02/11/21 15:40 Freq: Status: Active Protocol: Document 04/03/21 13:44 [facility] (Rec: 04/03/21 17:22 [facility] [id number]) Pelvic Floor Assessment Urine Pelvic Floor Surgery No Urinary Symptoms Urge Sensation,Incomplete Emptying Leakage Size Medium Leakage Cause Cough,Exercise,Lifting,Sneeze, Urge Leaks Per Day 4 Voiding Frequency approx 6 xms per day Nocturia yes Pads Used In 24 Hours 3-4 Urine Pad Type Depends Pelvic Clock Pelvic Clock 12-3 Atrophy Pelvic Clock 3-6 Atrophy Pelvic Clock 6-9 Guarding Pelvic Clock 9-12 Atrophy Pelvic Clock Other left sided levator ani guarding and tightness SEMG (uV) Baseline 0 10 Second Contraction 1.3 Recruitment Pattern Fair Relaxation Good Holding Poor/Slow Stability of Hold Poor/Slow SEMG Stability of Rest Good Contraction Ability Voluntary Contraction Weak Voluntary Relaxation Weak Manual Muscle Testing Left 2 Manual Muscle Testing Right 3 Manual Muscle Testing Anterior 2 Manual Muscle Testing Posterior 3 Muscle Endurance (Seconds) 2 Comments Pelvic Floor Comments poor endurance with ability to hold only a quick flick, average contraction for long holds is 1.3 uv with a max contraction of 5.2 uv PT-OP-Q Treatments Start: 02/11/21 15:40 Freq: Status: Active Protocol: Document 07/10/21 15:25 [facility] (Rec: 07/10/21 16:06 [facility] [id number]) Therapeutic Exercises Supine Exercises templates for coordination and eccentric control Equipment Used EMG biofeedback pelvic floor templates Reps/Minutes x 5 quick pelvic floor contractions Reps/Minutes 10 reps x 2 second hold each Comments 8.7 uv supine pelvic floor activation Reps/Minutes 10 second holds x 10 reps Comments 6.7 and 13.4 supine ball squeeze Side bilateral Reps/Minutes x 10res holding 5 seconds Comments without EMG biofeedback Sidelying Exercises clam shells Reps/Minutes 2 x 10 reps PT-OP-T Assessment and Plan Start: 02/11/21 15:40 Freq: Status: Active Protocol: Document 07/10/21 15:25 [facility] (Rec: 07/10/21 16:06 [facility] [id number]) Physical Therapy Assessment Goals 4 Impairment Decreased strength of the pelvic floor with MMT of 2/5 for the anterior and left lateral martinez and 3/5 for the right lateral and posterior wall Filter Press Tender Goal (LTG) Elizabeth is able to increase her strength by one muscle grade for all aspects of her levator ani to improve support to the pelvic organs GOOD PROGRESS LTG Duration 8 weeks 3 Impairment Elizabeth reports urinary leakage with sit-stand activity pt is doing better with this, she can still leak first thing in the am when she has a full bladder Fci Goal (LTG) Elizabeth is able to perform sit -stand without complaints of urinary leakage excellent progress with most of the time Elizabeth is not noticing leaking with this activity and she is able to engage her pelvic floor prior to standing LTG Duration 8 weeks 2 Impairment Poor endurance of the pelvic floor muscles with Elizabeth only being able to hold a pelvic floor contraction for 1 -2 seconds Short Term Goal (STG) Elizabeth is able to sustain a pelvic floor contraction in supine x 10 second hold time and for 10 reps Endurance is slowly improving and Elizabeth is able to hold her contraction 6-8 seconds now in supine STG Duration 5 weeks Filter Press Tender Goal (LTG) Elizabeth is able to sustain a pelvic floor contraction in sitting and or standing x 5 seconds Some progress LTG Duration 8 weeks 1 Impairment urinary leakage greater than 4 times per day, wetting through her clothes at times. Elizabeth is wearing depends and changing them 3-4 times per day Short Term Goal (STG) Elizabeth is educated on pelvic floor and core strengthening and she reports she is waking up dry in the morning good progress and Elizabeth is no longer wetting through her clothes. Overall improvement with not wetting through her clothes, AM is the most challanging time for her to get out of bed and make it to the bathroom. STG Duration 5 weeks Fci Goal (LTG) With pelvic floor and core strengthening Elizabeth is able to reduce her leaking to 0-1 times per day Good progress LTG Duration 8 weeks + Assessment Summary Assessment Pt is continuing to make progress with pelvic floor endurance and strength. Physical Therapy Plan Frequency and Duration Frequency of Treatment 1x/Week Duration of Treatment 8 Plan of Care Start Date 06/19/21 Plan of Care End Date 09/10/21 Therapeutic Interventions Therapeutic Interventions Home Exercise Program, Neuromuscular Re-education, Self-Care/Home Management,Soft Tissue Mobilization, Therapeutic Exercises Next Visit Focus/Plan Next Note Type Treatment Note Next Visit Plan continue with EMG biofeedback next visit, review urge deference technique and bladder retraining, review clam shells and sit-stand with pelvic floor engagement
--- NOTE | 2021-08-21 13:43 | PT.OTN ---
Current Diagnoses Unspecified urinary incontinence (08/21/21) Physical Therapy Treatment Note PT-OP-A Visit Information Start: 02/11/21 15:40 Freq: Status: Active Protocol: Document 08/21/21 13:02 [facility] (Rec: 08/21/21 13:43 [facility] [id number]) Out-Patient Physical Therapy Visit Information Visit Information Visit Type Treatment Note Visit Start Time 13:00 Visit Stop Time 13:45 Total Visit Minutes 45 Visit Number 7 PT-OP-B Current Condition Start: 02/11/21 15:40 Freq: Status: Active Protocol: Document 04/03/21 13:44 [facility] (Rec: 04/03/21 14:07 [facility] [id number]) Current Condition History of Current Condition Onset Date symptoms have progressed in the past 8 years, increased sx in the last 6 mo Current Complaints urinary and fecal incontinence History of Current Condition symptoms began 8 years ago and have progressed. Elizabeth notes her symptoms seemed controllable for a while but in the last 6 months they have progressed. Her symptoms include urinary and fecal urgency. She did try a medication for urgency but not seem to help it. She has type II diabetes and tries to drink water but it makes her void more so water intake is limited. At times she can also have fecal incontinence maybe 2-3 times in the last year. If she has been sitting and then gets up she will have a sudden urge to void. Elizabeth wears a heavy pad every day and changes it 3 -4 times per day. She does leak at night as well as her pad is wet. She also has sleep apnea and has a cpap machine on at night Prior Treatments and Tests 2 D&C's long history of heavy periods and she had many polups removed that helped decrease the symptoms of heavy periods Treatment Goals Patient/Caregiver Goals Elizabeth's goals include decreasing urinary and fecal incontinence as well as urgency Current Functional Impairments (Reported) Functional Limitations- ADL's urinary urgency and leaking limiting recreational and social activities PT-OP-C Subjective Start: 02/11/21 15:40 Freq: Status: Active Protocol: Document 08/21/21 13:02 [facility] (Rec: 08/21/21 13:43 [facility] [id number]) OP-PT Subjective Patient Comments Patient Comments pt reports she hasn't been doing her exercises as much PT-OP-I Pelvic Floor Start: 02/11/21 15:40 Freq: Status: Active Protocol: Document 04/03/21 13:44 [facility] (Rec: 04/03/21 17:22 [facility] [id number]) Pelvic Floor Assessment Urine Pelvic Floor Surgery No Urinary Symptoms Urge Sensation,Incomplete Emptying Leakage Size Medium Leakage Cause Cough,Exercise,Lifting,Sneeze, Urge Leaks Per Day 4 Voiding Frequency approx 6 xms per day Nocturia yes Pads Used In 24 Hours 3-4 Urine Pad Type Depends Pelvic Clock Pelvic Clock 12-3 Atrophy Pelvic Clock 3-6 Atrophy Pelvic Clock 6-9 Guarding Pelvic Clock 9-12 Atrophy Pelvic Clock Other left sided levator ani guarding and tightness SEMG (uV) Baseline 0 10 Second Contraction 1.3 Recruitment Pattern Fair Relaxation Good Holding Poor/Slow Stability of Hold Poor/Slow SEMG Stability of Rest Good Contraction Ability Voluntary Contraction Weak Voluntary Relaxation Weak Manual Muscle Testing Left 2 Manual Muscle Testing Right 3 Manual Muscle Testing Anterior 2 Manual Muscle Testing Posterior 3 Muscle Endurance (Seconds) 2 Comments Pelvic Floor Comments poor endurance with ability to hold only a quick flick, average contraction for long holds is 1.3 uv with a max contraction of 5.2 uv PT-OP-Q Treatments Start: 02/11/21 15:40 Freq: Status: Active Protocol: Document 08/21/21 13:02 [facility] (Rec: 08/21/21 13:43 [facility] [id number]) Therapeutic Exercises Supine Exercises templates for coordination and eccentric control Equipment Used EMG biofeedback pelvic floor templates Reps/Minutes x 5 min quick pelvic floor contractions Reps/Minutes 10 reps x 2 second hold each Comments 8.7 uv supine pelvic floor activation Comments 7.5 max of 13 Sitting Exercises sit to stand with pelvic floor engagement Reps/Minutes x 10 with pelvic floor recruitment PT-OP-T Assessment and Plan Start: 02/11/21 15:40 Freq: Status: Active Protocol: Document 08/21/21 13:02 [facility] (Rec: 08/21/21 13:43 [facility] [id number]) Physical Therapy Assessment Goals 4 Impairment Decreased strength of the pelvic floor with MMT of 2/5 for the anterior and left lateral martinez and 3/5 for the right lateral and posterior wall Certified Scrub Tech Goal (LTG) Elizabeth is able to increase her strength by one muscle grade for all aspects of her levator ani to improve support to the pelvic organs GOOD PROGRESS LTG Duration 8 weeks 3 Impairment Elizabeth reports urinary leakage with sit-stand activity pt is doing better with this, she can still leak first thing in the am when she has a full bladder Certified Scrub Tech Goal (LTG) Elizabeth is able to perform sit -stand without complaints of urinary leakage excellent progress with most of the time Elizabeth is not noticing leaking with this activity and she is able to engage her pelvic floor prior to standing LTG Duration 8 weeks 2 Impairment Poor endurance of the pelvic floor muscles with Elizabeth only being able to hold a pelvic floor contraction for 1 -2 seconds Short Term Goal (STG) Elizabeth is able to sustain a pelvic floor contraction in supine x 10 second hold time and for 10 reps Endurance is slowly improving and Elizabeth is able to hold her contraction 6-8 seconds now in supine STG Duration 5 weeks Group Home Goal (LTG) Elizabeth is able to sustain a pelvic floor contraction in sitting and or standing x 5 seconds Some progress LTG Duration 8 weeks 1 Impairment urinary leakage greater than 4 times per day, wetting through her clothes at times. Elizabeth is wearing depends and changing them 3-4 times per day Short Term Goal (STG) Elizabeth is educated on pelvic floor and core strengthening and she reports she is waking up dry in the morning good progress and Elizabeth is no longer wetting through her clothes. Overall improvement with not wetting through her clothes, AM is the most challanging time for her to get out of bed and make it to the bathroom. STG Duration 5 weeks Group Home Goal (LTG) With pelvic floor and core strengthening Elizabeth is able to reduce her leaking to 0-1 times per day Good progress LTG Duration 8 weeks + Assessment Summary Assessment Elizabeth hasn't been seen x 40 days in PT and she has not been doing as many home exercises. These were reviewed for her today and she was encouraged to keep up with her home program Physical Therapy Plan Frequency and Duration Frequency of Treatment 1x/Week Duration of Treatment 8 Plan of Care Start Date 06/19/21 Plan of Care End Date 09/10/21 Therapeutic Interventions Therapeutic Interventions Home Exercise Program, Neuromuscular Re-education, Self-Care/Home Management,Soft Tissue Mobilization, Therapeutic Exercises Next Visit Focus/Plan Next Note Type Treatment Note Next Visit Plan continue with EMG biofeedback next visit, review urge deference technique and bladder retraining, review clam shells and sit-stand with pelvic floor engagement
--- NOTE | 2021-08-28 16:55 | PT.OTN ---
Current Diagnoses Unspecified urinary incontinence (08/28/21) Physical Therapy Treatment Note PT-OP-A Visit Information Start: 02/11/21 15:40 Freq: Status: Active Protocol: Document 08/28/21 16:10 [facility] (Rec: 08/28/21 16:55 [facility] [id number]) Out-Patient Physical Therapy Visit Information Visit Information Visit Type Treatment Note Visit Start Time 14:10 Visit Stop Time 15:50 Total Visit Minutes 40 Visit Number 8 PT-OP-B Current Condition Start: 02/11/21 15:40 Freq: Status: Active Protocol: Document 04/03/21 13:44 [facility] (Rec: 04/03/21 14:07 [facility] [id number]) Current Condition History of Current Condition Onset Date symptoms have progressed in the past 8 years, increased sx in the last 6 mo Current Complaints urinary and fecal incontinence History of Current Condition symptoms began 8 years ago and have progressed. Elizabeth notes her symptoms seemed controllable for a while but in the last 6 months they have progressed. Her symptoms include urinary and fecal urgency. She did try a medication for urgency but not seem to help it. She has type II diabetes and tries to drink water but it makes her void more so water intake is limited. At times she can also have fecal incontinence maybe 2-3 times in the last year. If she has been sitting and then gets up she will have a sudden urge to void. Elizabeth wears a heavy pad every day and changes it 3 -4 times per day. She does leak at night as well as her pad is wet. She also has sleep apnea and has a cpap machine on at night Prior Treatments and Tests 2 D&C's long history of heavy periods and she had many polups removed that helped decrease the symptoms of heavy periods Treatment Goals Patient/Caregiver Goals Elizabeth's goals include decreasing urinary and fecal incontinence as well as urgency Current Functional Impairments (Reported) Functional Limitations- ADL's urinary urgency and leaking limiting recreational and social activities PT-OP-C Subjective Start: 02/11/21 15:40 Freq: Status: Active Protocol: Document 08/28/21 16:10 [facility] (Rec: 08/28/21 16:55 [facility] [id number]) OP-PT Subjective Patient Comments Patient Comments in the morning she notes that sometimes she stays in bed too long and then she has a strong urge to void. PT-OP-I Pelvic Floor Start: 02/11/21 15:40 Freq: Status: Active Protocol: Document 04/03/21 13:44 [facility] (Rec: 04/03/21 17:22 [facility] [id number]) Pelvic Floor Assessment Urine Pelvic Floor Surgery No Urinary Symptoms Urge Sensation,Incomplete Emptying Leakage Size Medium Leakage Cause Cough,Exercise,Lifting,Sneeze, Urge Leaks Per Day 4 Voiding Frequency approx 6 xms per day Nocturia yes Pads Used In 24 Hours 3-4 Urine Pad Type Depends Pelvic Clock Pelvic Clock 12-3 Atrophy Pelvic Clock 3-6 Atrophy Pelvic Clock 6-9 Guarding Pelvic Clock 9-12 Atrophy Pelvic Clock Other left sided levator ani guarding and tightness SEMG (uV) Baseline 0 10 Second Contraction 1.3 Recruitment Pattern Fair Relaxation Good Holding Poor/Slow Stability of Hold Poor/Slow SEMG Stability of Rest Good Contraction Ability Voluntary Contraction Weak Voluntary Relaxation Weak Manual Muscle Testing Left 2 Manual Muscle Testing Right 3 Manual Muscle Testing Anterior 2 Manual Muscle Testing Posterior 3 Muscle Endurance (Seconds) 2 Comments Pelvic Floor Comments poor endurance with ability to hold only a quick flick, average contraction for long holds is 1.3 uv with a max contraction of 5.2 uv PT-OP-Q Treatments Start: 02/11/21 15:40 Freq: Status: Active Protocol: Document 08/28/21 16:10 [facility] (Rec: 08/28/21 16:55 [facility] [id number]) Therapeutic Exercises Supine Exercises hip ER in supine Reps/Minutes 2 x 10 reps with yellow theraband bridges Supine Exercise Name with ball Reps/Minutes x 10 reps quick pelvic floor contractions Reps/Minutes 10 reps x 2 second hold each Comments 8.7 uv supine pelvic floor activation Reps/Minutes 10 second holds and 10 second relax Comments 3.1 max of 8.0 uv supine ball squeeze Side bilateral Reps/Minutes x 10res holding 5 seconds Comments without EMG biofeedback Sidelying Exercises clam shells Reps/Minutes 2 x 10 reps Sitting Exercises sit to stand with pelvic floor engagement Reps/Minutes x 10 with pelvic floor recruitment Standing Exercises standing mini squats Reps/Minutes x 20 reps PT-OP-T Assessment and Plan Start: 02/11/21 15:40 Freq: Status: Active Protocol: Document 08/28/21 16:10 [facility] (Rec: 08/28/21 16:55 [facility] [id number]) Physical Therapy Assessment Goals 4 Impairment Decreased strength of the pelvic floor with MMT of 2/5 for the anterior and left lateral martinez and 3/5 for the right lateral and posterior wall Penitentiary Goal (LTG) Elizabeth is able to increase her strength by one muscle grade for all aspects of her levator ani to improve support to the pelvic organs GOOD PROGRESS LTG Duration 8 weeks 3 Impairment Elizabeth reports urinary leakage with sit-stand activity pt is doing better with this, she can still leak first thing in the am when she has a full bladder Efficiency Expert Goal (LTG) Elizabeth is able to perform sit -stand without complaints of urinary leakage excellent progress with most of the time Elizabeth is not noticing leaking with this activity and she is able to engage her pelvic floor prior to standing LTG Duration 8 weeks 2 Impairment Poor endurance of the pelvic floor muscles with Elizabeth only being able to hold a pelvic floor contraction for 1 -2 seconds Short Term Goal (STG) Elizabeth is able to sustain a pelvic floor contraction in supine x 10 second hold time and for 10 reps Endurance is slowly improving and Elizabeth is able to hold her contraction 6-8 seconds now in supine STG Duration 5 weeks Penitentiary Goal (LTG) Elizabeth is able to sustain a pelvic floor contraction in sitting and or standing x 5 seconds Some progress LTG Duration 8 weeks 1 Impairment urinary leakage greater than 4 times per day, wetting through her clothes at times. Elizabeth is wearing depends and changing them 3-4 times per day Short Term Goal (STG) Elizabeth is educated on pelvic floor and core strengthening and she reports she is waking up dry in the morning good progress and Elizabeth is no longer wetting through her clothes. Overall improvement with not wetting through her clothes, AM is the most challenging time for her to get out of bed and make it to the bathroom. STG Duration 5 weeks Penitentiary Goal (LTG) With pelvic floor and core strengthening Elizabeth is able to reduce her leaking to 0-1 times per day Good progress LTG Duration 8 weeks + Assessment Summary Assessment Elizabeth had eaten lunch right before treatment today and was having a hard time with breath holding because she felt full. Physical Therapy Plan Frequency and Duration Frequency of Treatment 1x/Week Duration of Treatment 8 Plan of Care Start Date 06/19/21 Plan of Care End Date 09/10/21 Therapeutic Interventions Therapeutic Interventions Home Exercise Program, Neuromuscular Re-education, Self-Care/Home Management,Soft Tissue Mobilization, Therapeutic Exercises Next Visit Focus/Plan Next Note Type Treatment Note Next Visit Plan continue with EMG biofeedback next visit, review urge deference technique and bladder retraining, review clam shells and sit-stand with pelvic floor engagement
--- NOTE | 2021-10-21 14:12 | PT-OP ANOTE ---
pt no showed last scheduled visit after not being seen x 54 days. She will be discharged at this time
--- NOTE | 2021-10-21 14:15 | PT.OPDS ---
Current Diagnoses Unspecified urinary incontinence (08/28/21) Visit Care Team Role Provider Type Keerthi De Luna MD Attending Provider Physician Family Provider Primary Care Provider Referring Provider Specialty: Family Practice Address: [address] [place] [address], [facility] [place] [place], [facility] Email: [email or web address] Visit Number Visit Number 8 Discharge Summary PT-OP-B Current Condition Start: 02/11/21 15:40 Freq: Status: Active Protocol: Document 04/03/21 13:44 [facility] (Rec: 04/03/21 14:07 [facility] [id number]) Current Condition History of Current Condition Onset Date symptoms have progressed in the past 8 years, increased sx in the last 6 mo Current Complaints urinary and fecal incontinence History of Current Condition symptoms began 8 years ago and have progressed. Elizabeth notes her symptoms seemed controllable for a while but in the last 6 months they have progressed. Her symptoms include urinary and fecal urgency. She did try a medication for urgency but not seem to help it. She has type II diabetes and tries to drink water but it makes her void more so water intake is limited. At times she can also have fecal incontinence maybe 2-3 times in the last year. If she has been sitting and then gets up she will have a sudden urge to void. Elizabeth wears a heavy pad every day and changes it 3 -4 times per day. She does leak at night as well as her pad is wet. She also has sleep apnea and has a cpap machine on at night Prior Treatments and Tests 2 D&C's long history of heavy periods and she had many polups removed that helped decrease the symptoms of heavy periods Treatment Goals Patient/Caregiver Goals Elizabeth's goals include decreasing urinary and fecal incontinence as well as urgency Current Functional Impairments (Reported) Functional Limitations- ADL's urinary urgency and leaking limiting recreational and social activities PT-OP-C Subjective Start: 02/11/21 15:40 Freq: Status: Active Protocol: Document 08/28/21 16:10 [facility] (Rec: 08/28/21 16:55 [facility] [id number]) OP-PT Subjective Patient Comments Patient Comments in the morning she notes that sometimes she stays in bed too long and then she has a strong urge to void. PT-OP-I Pelvic Floor Start: 02/11/21 15:40 Freq: Status: Active Protocol: Document 04/03/21 13:44 [facility] (Rec: 04/03/21 17:22 [facility] [id number]) Pelvic Floor Assessment Urine Pelvic Floor Surgery No Urinary Symptoms Urge Sensation,Incomplete Emptying Leakage Size Medium Leakage Cause Cough,Exercise,Lifting,Sneeze, Urge Leaks Per Day 4 Voiding Frequency approx 6 xms per day Nocturia yes Pads Used In 24 Hours 3-4 Urine Pad Type Depends Pelvic Clock Pelvic Clock 12-3 Atrophy Pelvic Clock 3-6 Atrophy Pelvic Clock 6-9 Guarding Pelvic Clock 9-12 Atrophy Pelvic Clock Other left sided levator ani guarding and tightness SEMG (uV) Baseline 0 10 Second Contraction 1.3 Recruitment Pattern Fair Relaxation Good Holding Poor/Slow Stability of Hold Poor/Slow SEMG Stability of Rest Good Contraction Ability Voluntary Contraction Weak Voluntary Relaxation Weak Manual Muscle Testing Left 2 Manual Muscle Testing Right 3 Manual Muscle Testing Anterior 2 Manual Muscle Testing Posterior 3 Muscle Endurance (Seconds) 2 Comments Pelvic Floor Comments poor endurance with ability to hold only a quick flick, average contraction for long holds is 1.3 uv with a max contraction of 5.2 uv PT-OP-T Assessment and Plan Start: 02/11/21 15:40 Freq: Status: Active Protocol: Document 10/21/21 14:13 [facility] (Rec: 10/21/21 14:15 [facility] [id number]) Physical Therapy Assessment Assessment Summary Assessment pt was not seen for her last scheduled visit as she no showed. She will be discharged to a [facility] at this time and I would be happy to re-establish care for her again in the future should she want to pursue more PT Physical Therapy Plan Discharge Physical Therapy Discharge Reasons No Longer Attending PT
== END 2022-08-06 10:26 | disposition home or self-care (01) ==
LOC: PHYS 16:00
PROVIDERS: Family Provider Family Medicine; PCP Family Medicine; Referring Provider Family Medicine; Visit Provider Family Medicine
DX: R32 Unspecified urinary incontinence (principal)
CPT/HCPCS: 97110; 97161

== ENCOUNTER → 2021-09-09 14:37 | Outpatient (CLI) | payer MEDICARE, OTHER, SELFPAY ==
--- NOTE | 2021-09-09 | DI.ECHO.S_ITS ---
[facility]---------+ [facility] +---------+ : : [address] : : : : [id number] : : : : Phone: [phone]+ Echocardiogram Report + + :Name: RAUL MICHAELS Study Date: 09/09/2021 Height: 66 in : :[facility] ReadingLocation: Weight: 217 lb : : Gender: Female BSA: 2.1 m2 : :: 1950 Age: 71 yrs BP: 142/82 mmHg: :Reason For Study: HYPERTROPHIC CARDIOMYOPATHY : :Ordering Physician: AYAH, : :EFFIE Performed By: Jodi Santos : :Referring: EFFIE MCDOWELL : + + Interpretation Summary 1) Mildly increased left ventricular thickness (septal thickness 1.2cm, posterior wall thickness 0.95cm) with normal size, normal wall motion, and normal systolic function (EF 60-65%). 2) Peak VOT gradient 20mmHg with valsalva. 3) Normal right ventricular size and function. 4) No significant valvular abnormalities. 5) The ascending aorta is at the upper limits of normal in size at 3.9cm. 6) Compared to the echo done 07/05/2015, peak LVOT gradient has decreased on this study. Procedure: A two-dimensional transthoracic echocardiogram with color flow and Doppler was performed. The study quality was technically adequate. Comparison is made with the echocardiogram of 07/05/2015. The patient was in sinus rhythm with heart rates between 51-66 bpm during the exam. Left Ventricle: The left ventricle is normal in size. Proximal septal thickening is noted. There is mild asymmetric left ventricular hypertrophy. The ejection fraction is estimated to be 60-65%. Left ventricular systolic function appears normal without focal wall motion abnormalities. Right Ventricle: The right ventricle is normal in size and function. Atria: The left atrium is moderately dilated. Right atrial size is normal. There is no Doppler evidence for an interatrial shunt. Mitral Valve: The mitral valve leaflets appear mildly thickened, but open well. No systolic anterior motion of the mitral valve. There is mild mitral regurgitation. Aortic Valve: The aortic valve is grossly normal. There is no aortic valve stenosis. No aortic regurgitation is present. Tricuspid Valve: The tricuspid valve is normal in structure and function. There is a trace or physiologic amount of tricuspid regurgitation. Pulmonary artery pressures cannot be estimated because of the lack of a measurable TR jet velocity. Pulmonic Valve: The pulmonic valve leaflets are thin and pliable; valve motion is normal. There is mild pulmonic regurgitation. Great Vessels: The aortic root is normal size. The ascending aorta is at the upper limits of normal in size. The IVC is of normal diameter and collapses greater than 50% with a sniff. This suggests a low right atrial pressure of 3 mm Hg. Pericardium/ Pleura There is no pericardial effusion. There is no pleural effusion. MMode/2D Measurements & Calculations LVIDd: 5.0 cm LVOT diam: 2.1 cm LVIDs: 3.5 cm Ao root diam: 3.3 cm FS: 29.8 % asc Aorta Diam: 3.9 cm IVSd: 1.2 cm Ao Arch Diam (Prox Trans): 3.5 cm LVPWd: 0.95 cm LV garcia. diameter/BSA (cm/m^2): 2.4 LV sys. diameter/BSA (cm/m^2): 1.7 LA A2 area: 25.0 cm2 RA long axis: 5.4 cm LA A4 area: 23.3 cm2 RA area: 14.3 cm2 LA length (vol): 5.8 cm RA vol: 32.0 ml LA vol: 85.5 ml RA : 15.4 ml/m2 LA vol index: 41.3 ml/m2 IVC diam: 1.7 cm RVD1 (basal): 3.6 cm RVD2 (mid): 3.4 cm TAPSE: 1.8 cm Doppler Measurements & Calculations Ao V2 max: 181.1 cm/sec LVOT Max Lavon: 144.9 cm/sec Ao V2 mean: 127.8 cm/sec LV V1 max P.5 mmHg Ao max P.2 mmHg LV V1 VTI: 30.1 cm Ao mean P.3 mmHg LUCAS(I,D): 2.4 cm2 Ao V2 VTI: 43.6 cm LUCAS(V,D): 2.7 cm2 sev ratio: 0.69 LUCAS indexed to BSA (cm^2/m^2): 1.1 MV E max lavon: 99.9 cm/sec PA V2 max: 82.7 cm/sec MV A max lavon: 84.0 cm/sec PA V2 mean: 55.4 cm/sec MV E/A: 1.2 PA mean P.4 mmHg Med Peak E' Lavon: 5.8 cm/sec PA pr(Accel): 39.6 mmHg E/E' med: 17.3 Lat Peak E' Lavon: 8.7 cm/sec E/E' lat: 11.5 E/e' average: 14.4 MV dec time: 0.25 sec SV(OT): 103.0 ml Reading Physician:04:58 PM
== END ==
PROVIDERS: Family Provider Family Medicine; PCP Family Medicine; Referring Provider Internal Medicine Cardiovascular Disease; Visit Provider Internal Medicine Cardiovascular Disease
DX: I42.1 Obstructive hypertrophic cardiomyopathy (principal)
CPT/HCPCS: 93306

== ENCOUNTER 2021-12-05 18:36 | Emergency (ER) | payer MEDICARE, OTHER, SELFPAY ==
[2021-12-05] VITALS (17 sets, daily range): BP systolic 145–189; BP diastolic 69–91; PULSE 58–74; RESP 15–30; TEMP 36.9; O2SAT 96–99; BMI 34.4
--- NOTE | 2021-12-05 18:40 | DI.RAD.S_ITS ---
PROCEDURE: XR CHEST 1V INDICATIONS: weakness TECHNIQUE: One view of the chest was acquired. COMPARISON: [facility], , CHEST 2 VIEW, 10/07/2010, 13:03. FINDINGS: Surgical changes and devices: None. Lungs and pleura: Lungs are clear. No pleural effusions or pneumothorax. Mediastinum: Mild cardiomegaly. Bones and chest wall: No suspicious bony lesions. Overlying soft tissues appear unremarkable. IMPRESSION: Mild cardiomegaly. Otherwise, no acute radiographic abnormality. Dictated by: Michael Moody M.D. on 12/05/2021 at 18:57 Approved by: Michael Moody M.D. on 12/05/2021 at 18:58
[2021-12-05 18:51] LABS: Add Manual Diff / Slide Review NO; Basophils Absolute Auto 100 /uL (0-100); Basophils Percent Auto 0.6 % (0-2); Eosinophils Absolute Auto 100 /uL (0-450); Eosinophils Percent Auto 1.1 % (2-4); Hematocrit 38.7 % (36-46); Hemoglobin 13.4 g/dL (12.0-16.0); Lymphocytes Absolute Auto 1800 /uL (1100-4500); Lymphocytes Percent Auto 20.7 % (25-40); Mean Corpuscular HGB Conc 34.7 % (30-36); Mean Corpuscular Hemoglobin 29.1 PG (26-34); Mean Corpuscular Volume 83.8 fL (80-100); Monocytes Absolute Auto 900 /uL (0-900); Monocytes Percent Auto 10.6 % (3-14); Neutrophils Absolute Auto 5900 /uL (1500-7000); Platelet Count 276 X10^3/uL (150-400); Red Blood Cell Count 4.62 X10^6/uL (4.0-5.2); Red Cell Distribution Width 14.6 % (11.6-14.8); White Blood Cell Count 8.8 X10^3/uL (4.5-11.0)
[2021-12-05 19:03] LABS: Alanine Aminotransferase 23 IU/L (<35); Albumin 4.3 g/dL (3.5-5.0); Albumin Globulin Ratio 1.2 (1.0-2.8); Alkaline Phosphatase 57 U/L (38-126); Aspartate Aminotransferase 33 IU/L (14-36); Bilirubin Total 0.7 mg/dL (0.2-1.3); Blood Urea Nitrogen 17 mg/dL (7-17); Calcium 9.2 mg/dL (8.4-10.2); Carbon Dioxide 21 mmol/L (22-32); Chloride 106 mmol/L (98-107); Creatine Kinase 58 U/L (30-135); Estimated Glomerular Filt Rate > 60 mL/min (>60); Globulin 3.6 g/dL (1.7-4.1); Glucose 118 mg/dL (80-110); Lipase 131 U/L (23-300); Potassium 4.8 mmol/L (3.4-5.1); Sodium 136 mmol/L (137-145); Total Protein 7.9 g/dL (6.3-8.2)
[2021-12-05 19:05] LABS: HEMOLYSIS 101 (0-50)
[2021-12-05 19:13] LABS: INR 1.2 (0.9-1.3); Prothrombin Time 14.1 SECONDS (10.1-12.7)
[2021-12-05 19:15] LABS: NT-proBNP (BNP-Adult 18+) 320 pg/mL (<125); Troponin I < 0.012 ng/mL (0.01-0.034)
[2021-12-05 19:16] LABS: PTT Partial Thromboplastin Tim 27 SECONDS (26-36)
--- NOTE | 2021-12-05 19:30 | ED_ITS ---
HPI - Weakness General Chief complaint: Weakness Stated complaint: weakness, lethargic Time Seen by Provider: 12/05/21 18:36 Source: patient and EMS Mode of arrival: EMS History of Present Illness HPI Narrative: 71F nonsmoker with history of HOCM, hyperlipidemia, and DM presents by EMS for evaluation of vague episodes of weakness and feeling funny primarily in the mornings a few days this week. She had initially thought that it was a blood sugar problem as she just felt sweaty and generally weak. She states that there has been no obvious provocation or palliation and most of the time she feels just fine. She has been active but denies any symptoms associated with that. She is had no cardiac equivalent symptoms such as dizziness or lightheadedness nor nausea or vomiting. She is had no pain at any point. She has a history w latrell Lynch at [facility] and most recently saw him this summer. She had an echocardiogram that had no significant changes in her historical picture. Furthermore, she had a monitoring manager that picked up a few runs of atrial tachycardia, it was recommended that she get off of methylphenidate at that time. She is currently symptom-free Related Data Home Medications Medication Instructions Recorded Confirmed aspirin 81 mg tablet,delayed 81 mg PO DAILY 10/06/17 10/06/21 release ResMed Airsense 10 Autoset CPAP #1 ea 05/02/18 10/06/21 cetirizine 10 mg tablet (Zyrtec) 5 mg PO DAILY PRN 10/31/18 10/06/21 atorvastatin 40 mg tablet 40 mg PO BEDTIME 04/15/20 10/06/21 atenolol 100 mg tablet 100 mg PO BID 11/22/20 10/06/21 levothyroxine 200 mcg tablet 225 mcg PO DAILY 01/24/21 10/06/21 metformin 500 mg tablet 500 mg PO DAILY 01/24/21 10/06/21 medroxyprogesterone 10 mg tablet See Rx Instructions .Route .COMPLEX 06/10/21 10/06/21 metformin [Glucophage] PO .HS 06/10/21 10/06/21 Previous Rx's Medication Instructions Recorded methylphenidate HCl 5 mg tablet 15 mg PO DAILY PRN inattention 04/14/21 with driving #90 tabs desvenlafaxine 50 mg 50 mg PO DAILY #30 tabs 06/10/21 tablet,extended release 24 hr methylphenidate HCl 36 mg 72 mg PO QAM #60 tabs 10/06/21 tablet,extended release 24 hr methylphenidate HCl 36 mg 72 mg PO QAM #60 tabs 10/06/21 tablet,extended release 24 hr (Concerta) methylphenidate HCl 36 mg 72 mg PO QAM #60 tabs 10/06/21 tablet,extended release 24 hr (Concerta) Allergies Allergy/AdvReac Type Severity Reaction Status Date / Time No Known Drug Allergies Allergy Verified 12/05/21 18:51 Review of Systems Review of Systems Narrative: GENERAL: See HPI HEENT: Denies sinus pain, ear pain, sore throat, difficulty swallowing, dizziness. RESPIRATORY: Denies dyspnea, cough, wheezing, hemoptysis, sputum. CARDIOVASCULAR: see HPI GASTROINTESTINAL: Denies nausea, vomiting, abdominal pain, diarrhea, constipation, melena. : Denies dysuria, frequency, incontinence, hematuria, urinary retention. MUSCULOSKELETAL: denies weakness, joint pain, or bony pain SKIN: Denies rash, skin lesions, or other NEUROLOGIC: Denies weakness, headache, numbness, change in speech, confusion, seizures, incoordination. PSYCHIATRIC: No concerning psychosocial issues. 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 Well-developed patient, in mild distress. HEAD: Atraumatic. Normocephalic. EYES: Pupils equal round and reactive. Extraocular motions intact. No scleral icterus. No injection or drainage. ENT: Nose without bleeding, purulent drainage. Throat without erythema, tonsillar hypertrophy or exudate. Airway patent. NECK: Trachea midline. Non tender CARDIOVASCULAR: Regular rate and rhythm without murmurs, gallops, or rubs. RESPIRATORY: Clear to auscultation. Breath sounds equal bilaterally. No wheezes, rales, or rhonchi. GASTROINTESTINAL: Abdomen soft, non-tender, nondistended. EXTREMITIES: No edema or joint tenderness. BACK: Nontender without deformity or crepitance. No flank tenderness. NEURO: AOx3. SKIN: No rash or erythema of visible areas Initial Vital Signs Initial Vital Signs: Vital Signs Pulse Rate 63 12/05/21 18:43 Respiratory Rate 18 12/05/21 18:43 Pulse Oximetry 98 12/05/21 18:43 Course Orders Ordered: ED Orders 12/05/21 18:40 XR chest 1V Stat Complete Blood Count AUTO DIFF Stat Comprehensive Metabolic Panel Stat Lipase Stat NT-proBNP (BNP-Adult 18+) Stat PTT [Partial Thromboplastin Time] Stat Prothrombin Time INR Stat Troponin & CK Cardiac Panel Stat 12/05/21 18:45 EKG-12 Lead Stat 12/05/21 19:45 COVID19 -Nasal RAPID/Pre-Proc Stat 12/05/21 21:06 Free T4, Direct Thyroxine Stat TSH w/ Reflex to FT4 Stat Trop I [Troponin I] Stat Discontinued Medications Sodium Chloride (Normal Saline 0.9%) 1,000 mls @ 150 mls/hr IV CONT HOWARD Last Infusion: 12/05/21 23:14 Dose: 0 mls/hr Documented By: Admin: 12/05/21 19:44 Dose: 150 mls/hr Documented By: EB Consultations Consultation #1: Discussed with on-call Cardiology, we share the opinion that her story is very unlikely to be cardiac in nature. Her EKG is unchanged from prior, recent Echo was reassuring. Labs unremarkable. Vital Signs Vital signs: Vital Signs - 8 hr 12/05/21 18:44 12/05/21 18:43 12/05/21 19:00 Temperature 98.4 F Pulse Rate 63 63 58 L Pulse Rate [Orthostatic Lying] Pulse Rate [Orthostatic Sitting] Pulse Rate [Orthostatic Standing] Respiratory Rate 18 18 18 Blood Pressure 189/91 H Blood Pressure [Orthostatic Lying] Blood Pressure [Orthostatic Sitting] Blood Pressure [Orthostatic Standing] Pulse Oximetry 96 98 98 Oxygen Delivery Method Room Air 12/05/21 19:01 12/05/21 19:01 12/05/21 19:30 Temperature Pulse Rate 60 Pulse Rate [Orthostatic Lying] Pulse Rate [Orthostatic Sitting] Pulse Rate [Orthostatic Standing] Respiratory Rate 22 Blood Pressure 152/88 H 166/79 H Blood Pressure [Orthostatic Lying] Blood Pressure [Orthostatic Sitting] Blood Pressure [Orthostatic Standing] Pulse Oximetry 98 Oxygen Delivery Method 12/05/21 19:30 12/05/21 20:00 12/05/21 20:00 Temperature Pulse Rate 61 61 Pulse Rate [Orthostatic Lying] Pulse Rate [Orthostatic Sitting] Pulse Rate [Orthostatic Standing] Respiratory Rate 28 H 22 Blood Pressure 168/76 H Blood Pressure [Orthostatic Lying] Blood Pressure [Orthostatic Sitting] Blood Pressure [Orthostatic Standing] Pulse Oximetry 97 98 Oxygen Delivery Method 12/05/21 20:30 12/05/21 20:50 12/05/21 20:50 Temperature Pulse Rate 64 64 Pulse Rate [Orthostatic Lying] Pulse Rate [Orthostatic Sitting] Pulse Rate [Orthostatic Standing] Respiratory Rate 21 Blood Pressure 157/73 H Blood Pressure [Orthostatic Lying] Blood Pressure [Orthostatic Sitting] Blood Pressure [Orthostatic Standing] Pulse Oximetry 99 99 Oxygen Delivery Method 12/05/21 21:59 12/05/21 21:00 12/05/21 21:30 Temperature Pulse Rate 73 66 Pulse Rate [Orthostatic Lying] 72 Pulse Rate [Orthostatic Sitting] 68 Pulse Rate [Orthostatic Standing] 74 Respiratory Rate 27 H 29 H Blood Pressure Blood Pressure [Orthostatic Lying] 154/70 H Blood Pressure [Orthostatic Sitting] 155/74 H Blood Pressure [Orthostatic Standing] 163/73 H Pulse Oximetry 98 98 Oxygen Delivery Method 12/05/21 21:55 12/05/21 21:55 12/05/21 21:56 Temperature Pulse Rate 67 71 Pulse Rate [Orthostatic Lying] Pulse Rate [Orthostatic Sitting] Pulse Rate [Orthostatic Standing] Respiratory Rate 29 H 30 H Blood Pressure 154/70 H Blood Pressure [Orthostatic Lying] Blood Pressure [Orthostatic Sitting] Blood Pressure [Orthostatic Standing] Pulse Oximetry 98 Oxygen Delivery Method 12/05/21 21:56 12/05/21 21:57 12/05/21 21:57 Temperature Pulse Rate 74 Pulse Rate [Orthostatic Lying] Pulse Rate [Orthostatic Sitting] Pulse Rate [Orthostatic Standing] Respiratory Rate 15 Blood Pressure 155/74 H 163/73 H Blood Pressure [Orthostatic Lying] Blood Pressure [Orthostatic Sitting] Blood Pressure [Orthostatic Standing] Pulse Oximetry Oxygen Delivery Method 12/05/21 22:01 12/05/21 22:30 12/05/21 22:46 Temperature Pulse Rate 72 66 66 Pulse Rate [Orthostatic Lying] Pulse Rate [Orthostatic Sitting] Pulse Rate [Orthostatic Standing] Respiratory Rate 29 H Blood Pressure Blood Pressure [Orthostatic Lying] Blood Pressure [Orthostatic Sitting] Blood Pressure [Orthostatic Standing] Pulse Oximetry 98 98 Oxygen Delivery Method 12/05/21 22:46 Temperature Pulse Rate Pulse Rate [Orthostatic Lying] Pulse Rate [Orthostatic Sitting] Pulse Rate [Orthostatic Standing] Respiratory Rate 22 Blood Pressure 145/69 H Blood Pressure [Orthostatic Lying] Blood Pressure [Orthostatic Sitting] Blood Pressure [Orthostatic Standing] Pulse Oximetry 98 Oxygen Delivery Method Room Air MDM - Weakness Lab Data Result diagrams: 12/05/21 18:40 12/05/21 18:40 Labs: Lab Results 12/05/21 12/05/21 12/05/21 Range/Units 18:40 18:40 18:40 WBC 8.8 (4.5-11.0) X10^3/uL RBC 4.62 (4.0-5.2) X10^6/uL Hgb 13.4 (12.0-16.0) g/dL Hct 38.7 (36-46) % MCV 83.8 (80-100) fL MCH 29.1 (26-34) PG MCHC 34.7 (30-36) % RDW 14.6 (11.6-14.8) % Plt Count 276 (150-400) X10^3/uL Neut % (Auto) 67.0 (50-75) % Lymph % (Auto) 20.7 L (25-40) % Gregory % (Auto) 10.6 (3-14) % Eos % (Auto) 1.1 L (2-4) % Baso % (Auto) 0.6 (0-2) % Neut # (Auto) 5900 (0959-7248) /uL Lymph # (Auto) 1800 (3552-9670) /uL Gregory # (Auto) 900 (0-900) /uL Eos # (Auto) 100 (0-450) /uL Baso # (Auto) 100 (0-100) /uL PT 14.1 H (10.1-12.7) SECONDS INR 1.2 (0.9-1.3) APTT 27 (26-36) SECONDS Sodium 136 L (137-145) mmol/L Potassium 4.8 (3.4-5.1) mmol/L Chloride 106 (98-107) mmol/L Carbon Dioxide 21 L (22-32) mmol/L BUN 17 (7-17) mg/dL Creatinine 0.74 (0.52-1.04) mg/dL Estimated GFR > 60 (>60) mL/min BUN/Creatinine Ratio 23.0 H (6-22) Glucose 118 H (80-110) mg/dL Calcium 9.2 (8.4-10.2) mg/dL Total Bilirubin 0.7 (0.2-1.3) mg/dL AST 33 (14-36) IU/L ALT 23 (<35) IU/L Alkaline Phosphatase 57 (38-126) U/L Total Creatine Kinase 58 (30-135) U/L CK-MB (CK-2) TNP CK-MB (CK-2) Rel Index TNP Troponin I < 0.012 (0.01-0.034) ng/mL NT-Pro-B Natriuret Pep 320 H (<125) pg/mL Total Protein 7.9 (6.3-8.2) g/dL Albumin 4.3 (3.5-5.0) g/dL Globulin 3.6 (1.7-4.1) g/dL Albumin/Globulin Ratio 1.2 (1.0-2.8) Lipase 131 (23-300) U/L TSH (0.47-4.68) uIU/mL Free T4 (0.78-2.19) ng/dL SARS-CoV-2 (PCR) (Negative) 12/05/21 12/05/21 12/05/21 Range/Units 19:45 21:06 21:06 WBC (4.5-11.0) X10^3/uL RBC (4.0-5.2) X10^6/uL Hgb (12.0-16.0) g/dL Hct (36-46) % MCV (80-100) fL MCH (26-34) PG MCHC (30-36) % RDW (11.6-14.8) % Plt Count (150-400) X10^3/uL Neut % (Auto) (50-75) % Lymph % (Auto) (25-40) % Gregory % (Auto) (3-14) % Eos % (Auto) (2-4) % Baso % (Auto) (0-2) % Neut # (Auto) (8704-9714) /uL Lymph # (Auto) (8003-0521) /uL Gregory # (Auto) (0-900) /uL Eos # (Auto) (0-450) /uL Baso # (Auto) (0-100) /uL PT (10.1-12.7) SECONDS INR (0.9-1.3) APTT (26-36) SECONDS Sodium (137-145) mmol/L Potassium (3.4-5.1) mmol/L Chloride (98-107) mmol/L Carbon Dioxide (22-32) mmol/L BUN (7-17) mg/dL Creatinine (0.52-1.04) mg/dL Estimated GFR (>60) mL/min BUN/Creatinine Ratio (6-22) Glucose (80-110) mg/dL Calcium (8.4-10.2) mg/dL Total Bilirubin (0.2-1.3) mg/dL AST (14-36) IU/L ALT (<35) IU/L Alkaline Phosphatase (38-126) U/L Total Creatine Kinase (30-135) U/L CK-MB (CK-2) CK-MB (CK-2) Rel Index Troponin I < 0.012 (0.01-0.034) ng/mL NT-Pro-B Natriuret Pep (<125) pg/mL Total Protein (6.3-8.2) g/dL Albumin (3.5-5.0) g/dL Globulin (1.7-4.1) g/dL Albumin/Globulin Ratio (1.0-2.8) Lipase (23-300) U/L TSH 0.05 L (0.47-4.68) uIU/mL Free T4 1.88 (0.78-2.19) ng/dL SARS-CoV-2 (PCR) Negative (Negative) Imaging Data Chest x-ray: Radiologist Impression: Elizabeth Meyers??71??F??1950 ? Allergy/Adv: No Known Drug Allergies (More??) Close Chest X-Ray (Signed) Michael Moody - 12/05/21 Echocardiogram Ultrasound (Signed) Evi Mcdowell - 09/09/21 Mammogram Screening (Signed) Jerman Page - 03/03/21 Mammogram Screening (Signed) Arsalan Vee - 01/30/20 Mammogram Screening (Signed) BryanKolton - 11/15/18 Mammogram Screening (Signed) Bree Bone - 11/12/17 Launch?[address] [address] XRay Report Signed Patient: Elizabeth Meyers MR#: [id number] : 1950 Acct:[id number] Age/Sex: 71 / F Date of Service: 12/05/21 Loc: Accession Number: [id number] ?? Procedure: XR chest 1V Ordering Provider: Nitin Huston D.O. PROCEDURE:? XR CHEST 1V ? INDICATIONS:? weakness ? TECHNIQUE:? One view of the chest was acquired.? ? COMPARISON:? [facility], CHEST 2 VIEW, 10/07/2010, 13:03. ? FINDINGS:? ? Surgical changes and devices:? None.? ? Lungs and pleura:? Lungs are clear.? No pleural effusions or pneumothorax.? ? Mediastinum:? Mild cardiomegaly. ? Bones and chest wall:? No suspicious bony lesions.? Overlying soft tissues michelle ear unremarkable.? ? IMPRESSION:? Mild cardiomegaly.? Otherwise, no acute radiographic abnormality. ? ? Dictated by: Michael Moody M.D. on 12/05/2021 at 18:57 ? ? ECG Data Interpretation: [1845] EKG is normal sinus rhythm rate [ 62] and free of any signs of ectopy. Widespread biphasic T-waves unchanged from prior imaging and most likely relating to underlying HOCM MDM Narrative Medical decision making narrative: Multiple etiologies for patient's symptoms considered including: [Urine infection versus thyroid issue versus diabetic versus cardiac ischemia versus other EKGs unchanged from prior, troponin negative. No exertional symptoms.] Patient's symptoms improved over duration of stay with above-stated therapies. Findings and discharge diagnosis discussed with patient/family followed by verbalization of understanding Return precautions discussed with patient/family whom verbalize understanding. Discharge Plan Departure Patient Disposition: Home Clinical Impression: Weakness Instructions: DI for Fatigue Activity Restrictions/Additional Instructions: *You have been diagnosed with [episodic fatigue and weakness, as we discussed y our physical exam, labs, EKG are all very reassuring there is no evidence of infection, kidney issue, heart attack or other diagnosis which would require specific or immediate intervention] *What to do: *Please continue to take your regular medications as directed. [ ] New medication prescriptions sent to your pharmacy: [ ] [ ] New medication written as a paper prescription [x ] No new medications given *Please follow up with your primary care provider in 2-3 days, call for an appointment. Let them know you were seen in the Emergency Department and that we ask that you be seen in follow up. We will electronically transmit a record of today's note if your PCP is in our system *If you do not have a primary care provider please contact the [facility] Resource line at [phone]. They will ask some questions about your medical history and help get you set up with a doctor in the community. *Return to Emergency Department if you should have any new, worsening or concerning symptoms, such as [fever greater than 101 F, shaking chills, worsening pain, persistent vomiting or other bothersome symptoms] Prescriptions: No Action atorvastatin 40 mg tablet 40 mg PO BEDTIME levothyroxine 200 mcg tablet 225 mcg PO DAILY atenolol 100 mg tablet 100 mg PO BID metformin [Glucophage] PO .HS medroxyprogesterone 10 mg tablet See Rx Instructions .ROUTE .COMPLEX Dose Instruction: TAKE ONE TABLET BY MOUTH TWO TIMES DAILY FOR HYPERPLASIA Rx Instructions: TAKE ONE TABLET BY MOUTH ONE TIME DAILY FOR HYPERPLASIA. desvenlafaxine 50 mg tablet extended release 24 hr 50 mg PO DAILY Qty: 30 5RF methylphenidate HCl [Concerta] 36 mg tablet extended release 24hr 72 mg PO QAM Qty: 60 0RF methylphenidate HCl [Concerta] 36 mg tablet extended release 24hr 72 mg PO QAM Qty: 60 0RF methylphenidate HCl 36 mg tablet extended release 24hr 72 mg PO QAM Qty: 60 0RF cetirizine [Zyrtec] 10 mg tablet 5 mg PO DAILY PRN metformin 500 mg tablet 500 mg PO DAILY methylphenidate HCl 5 mg tablet 15 mg PO DAILY PRN (Reason: inattention with driving) Qty: 90 0RF Rx Instructions: Take 30 min before driving aspirin 81 mg tablet,delayed release (DR/EC) 81 mg PO DAILY (DME) ResMed Airsense 10 Autoset CPAP Qty: 1 Dose Instruction: As directed Label Comments: Pressure: 12-18 cmH2O DME: [facility] Rx Instructions: As directed Referrals: Keerthi De Luna MD [Primary Care Provider] - Visit Report Forms: Patient Portal/API
[2021-12-05] MEDS: SODIUM CHLORIDE 0.9% 1,000 ML 150 ML IV (19:44)
[2021-12-05 20:17] LABS: COVID19 -Nasal RAPID Negative (Negative)
[2021-12-05 21:38] LABS: Troponin I < 0.012 ng/mL (0.01-0.034)
[2021-12-05 21:57] LABS: TSH w/ Reflex to FT4 0.05 uIU/mL (0.47-4.68)
[2021-12-05 22:47] LABS: Free T4, Direct Thyroxine 1.88 ng/dL (0.78-2.19)
== END 2021-12-05 23:15 | disposition home or self-care (01) ==
PROVIDERS: Emergency Provider Emergency Medicine; Family Provider Family Medicine; PCP Family Medicine
DX: R53.1 Weakness (principal); Z20.822 Contact with and (suspected) exposure to COVID-19
CPT/HCPCS: 71045; 80053; 82550; 83690; 83880; 84439; 84443; 84484; 85025; 85610; 85730; 87635; 93005; 96360; 96361; 99284; C9803

== ENCOUNTER → 2022-04-17 08:03 | Outpatient (CLI) | payer MEDICARE, OTHER, SELFPAY ==
--- NOTE | 2022-04-17 | DI.MG.S_ITS ---
BILATERAL DIGITAL SCREENING MAMMOGRAM 3D/2D WITH CAD: 04/17/2022 CLINICAL: Routine screening. Family history of breast cancer. Comparison is made to exams dated: 03/03/2021 mammogram, 01/30/2020 mammogram, and 11/15/2018 mammogram - [facility]. There are scattered areas of fibroglandular density in both breasts (category b / 25%-50% glandular tissue). Current study was also evaluated with a Computer Aided Detection (CAD) system. No significant masses, calcifications, or other findings are seen in either breast. There has been no significant interval change. IMPRESSION: NEGATIVE There is no mammographic evidence of malignancy. A 1 year screening mammogram is recommended. Based on the Tyrer Cuzick model (a risk assessment model) the patient's lifetime risk is 9.9% and her 10 year risk is 6.3%. According to the ACR, ACS, and NCCN guidelines, an annual breast MRI exam along with mammogram is recommended if the patient's lifetime risk is 20% or greater. This exam was interpreted at Station ID: [id number]. NOTE: For mammograms, a report in lay terms will be sent to the patient. Approximately 15% of breast malignancies will not be visualized mammographically. In the management of a palpable breast mass, a negative mammogram must not discourage biopsy of a clinically suspicious lesion. Electronically Signed By: Ej guillory/neetu:04/17/2022 09:08:29 letter sent: Normal Exam ACR BI-RADS Category 1: Negative [id number]
== END ==
PROVIDERS: Family Provider Family Medicine; PCP Family Medicine; Referring Provider Family Medicine; Visit Provider Family Medicine
DX: Z12.31 Encounter for screening mammogram for malignant neoplasm of breast (principal); Z80.3 Family history of malignant neoplasm of breast
CPT/HCPCS: 77063; 77067